=== PATIENT | female | born 1990 | race Caucasian/White ===

== ENCOUNTER 2024-03-29 20:08 | Emergency (ER) | payer BC, SELFPAY ==
[2024-03-29 20:17] VITALS: BP 138/80; PULSE 98; RESP 22; TEMP 36.7; O2SAT 100; BMI 38.0
[2024-03-29 20:20] VITALS: PULSE 91; O2SAT 100
--- NOTE | 2024-03-29 20:20 | HMH.EDGENADL ---
Discharge Plan Disposition Patient Disposition: Home, Self-Care Condition: Good Referrals Follow up/Referrals: Aleisha Gill DO [Staff Physician] - See instructions Eboni Dan APRN [Primary Care Provider] - See instructions Activity Restrictions/Add. Instructions Additional Instructions/Restrictions: Please follow-up with your CRIMINAL PSYCHOLOGIST in 48 hours for reevaluation. Return to the ER for any increasing pain fever intractable nausea vomiting inability to tolerate oral intake or heavy bleeding. Clinical Impressions Clinical Impression: Abdominal pain, acute Instructions Patient Instructions: DI for Acute Abdominal Pain Print Language Print Language: Martiniquais Discharge ED Provider: Hernandez Downs General Adult HPI <EUN Samuels - Last Filed: 03/29/24 22:22> General Chief complaint: PAIN Stated complaint: abd pain, blood in urine Time Seen by Provider: 03/29/24 20:19 History of Present Illness HPI narrative: Patient presents for evaluation of lower abdominal pain. Patient presents for increasing lower abdominal pain that began today. Additionally patient is on her period but has had a BTL. Patient reports that she is using a regular size tampon and going through approximately 1 an hour which is not excessive. She denies any fever chills hemoptysis hematochezia melena but does endorse some nausea no vomiting and but has loose stools. More significantly, patient was diagnosed with a PE last week and started on Xarelto. Related Data Allergies Allergy/AdvReac Type Severity Reaction Status Date / Time Penicillins Allergy Hives Verified 03/29/24 20:27 PFSH <EUN Samuels - Last Filed: 03/29/24 22:22> PFS Disclaimer: The information contained in this section may have been updated after the patient was seen, as this information can be updated by other users. Surgical History (Updated 03/29/24 @ 21:15 by Sheryl Vega RN) Surgical history of tubal ligation Social History (Updated 03/29/24 @ 22:22 by EUN Samuels) Smoking Status: Former smoker alcohol intake: never current occupational status: unemployed Travel in the last 8 weeks: None <EUN Samuels - Last Filed: 03/29/24 22:22> ROS Obtained: Yes Systems reviewed as appropriate & no additional complaints except as documented Physical Exam <EUN Samuels - Last Filed: 03/29/24 22:22> General General appearance: alert and in distress (Due to pain) Respiratory Respiratory exam: Present normal lung sounds bilaterally Cardiovascular Cardiovascular exam: Present regular rate Neurological Exam Neurological exam: Present alert and oriented X3 Medical Decision Making <EUN Samuels - Last Filed: 03/29/24 22:22> Medical Records Medical records reviewed: Yes I reviewed the patient's medical records. Screening: Per USPSTF and CDC recommendations, given the prevalence of disease in our region, it is our hospital?s policy to screen for HIV and viral Hepatitis for all patients aged 18 and over and those with ongoing risk factors. [place] Inquiry Pt receiving controlled substance: No Vital Signs: 03/29/24 20:17 03/29/24 20:20 03/29/24 20:39 Temperature 98.1 F Temperature Source Oral Pulse Rate 91 H 86 Pulse Rate [Left Radial] 98 H Respiratory Rate 22 Blood Pressure 131/86 Blood Pressure [Right Arm] 138/80 Blood Pressure Mean [Right Arm] 99 Blood Pressure Source Blood Pressure Source [Right Arm] Automatic Cuff Blood Pressure Position 02 Sat by Pulse Oximetry 100 100 100 Oxygen Delivery Method Room Air 03/29/24 22:00 03/29/24 22:19 Temperature 97.9 F Temperature Source Oral Pulse Rate 104 H 74 Pulse Rate [Left Radial] Respiratory Rate 18 Blood Pressure 107/60 L 126/74 Blood Pressure [Right Arm] Blood Pressure Mean [Right Arm] Blood Pressure Source Automatic Cuff Blood Pressure Source [Right Arm] Blood Pressure Position Supine 02 Sat by Pulse Oximetry 98 Oxygen Delivery Method Room Air Lab Data Lab results reviewed: Yes I reviewed the patient's lab results. Lab Results 03/29/24 20:31: WBC 9.6, RBC 4.51, Hgb 12.4, Hct 37.7, MCV 83.7, MCH 27.5, MCHC 32.8, RDW 14.6, Plt Count 281, MPV 8.3, Neut % (Auto) 59.2, Lymph % (Auto) 32.9, Sharp % (Auto) 5.7, Eos % (Auto) 1.0, Baso % (Auto) 1.1, Neut # (Auto) 5.7, Lymph # (Auto) 3.1, Sharp # (Auto) 0.6, Eos # (Auto) 0.1, Baso # (Auto) 0.1, Sodium 140, Potassium 4.2, Chloride 109 H, Carbon Dioxide 19 L, Anion Gap 16.2 H, BUN 13, Creatinine 1.00, Estimated Creat Clear 143, Estimated GFR 64, Est GFR ( Amer) 77, Glucose 96, Lactate 2.4 H, Calcium 8.9, Total Bilirubin 0.6, AST 36, ALT 26, Alkaline Phosphatase 91, Total Protein 7.5, Albumin 4.1, Globulin 3.4 H, Albumin/Globulin Ratio 1.2 03/29/24 22:23: Urine Color Yellow, Urine Appearance Clear, Urine pH 6.5, Ur Specific [place] 1.015, Urine Protein Negative, Urine Glucose (UA) Negative, Urine Ketones Trace, Urine Blood 3+ A, Urine Nitrate Negative, Urine Bilirubin Negative, Urine Urobilinogen 0.2, Ur Leukocyte Esterase Negative 03/29/24 20:31 03/29/24 20:31 Orders (Tests/Meds): ED MEDICATIONS Discontinued Medications Generic Name Dose Route Start Last Admin Trade Name Cherelle PRN Reason Stop Dose Admin Acetaminophen 1,000 mg 03/29/24 20:44 03/29/24 21:08 Acetaminophen 1,000mg/100ml Vial IV 03/29/24 20:45 1,000 mg ONCE ONE Administration Hydromorphone HCl 1 mg 03/29/24 20:44 03/29/24 21:08 Hydromorphone 2mg/Ml Syringe IV 03/29/24 20:45 1 mg ONCE ONE Administration Sodium Chloride 1,000 mls @ 999 mls/hr 03/29/24 20:44 03/29/24 21:08 Sod Chlor 0.9% 1000ml Bag IV 03/29/24 21:44 999 mls/hr .Q1H1M ONE Administration Iopamidol 75 ml 03/29/24 21:20 03/29/24 21:34 Iopamidol-370 (76%);100ml Bottle IV 03/29/24 21:21 75 ml ONCE ONE Administration Iopamidol 75 ml 03/29/24 21:33 03/29/24 21:34 Iopamidol-370 (76%);100ml Bottle IV 03/29/24 21:34 Not Given ONCE ONE Ketorolac Tromethamine 15 mg 03/29/24 21:05 03/29/24 21:08 Ketorolac 30mg/Ml Vial IV 03/29/24 21:06 15 mg ONCE ONE Administration Ondansetron HCl 4 mg 03/29/24 20:44 03/29/24 21:08 Ondansetron 4mg/2ml Vial IV 03/29/24 20:45 4 mg ONCE ONE Administration Sodium Chloride 10 ml 03/29/24 21:20 03/29/24 21:22 Sodium Chloride 0.9% 10ml Syr (Rad Only) IV 03/29/24 21:21 10 ml ONCE ONE Administration Sodium Chloride 10 ml 03/29/24 21:33 Sodium Chloride 0.9% 10ml Syr (Rad Only) IV 04/28/24 21:32 NEEDED PRN Maintain IV Site ORDERS Category Date Time Status CT abdomen pelvis w con Stat Cat Scan 03/29/24 20:44 Completed CBC w/Auto Diff [Complete Blood Count Auto Diff] Stat Lab 03/29/24 20:31 Completed CMP [Comprehensive Metabolic Panel] Stat Lab 03/29/24 20:31 Completed HIV (1&2) Antibody Rapid Stat Lab 03/29/24 20:31 Received Hep C Ab with Reflex to RNA Stat Lab 03/29/24 20:31 Received Lactic Acid Stat Lab 03/29/24 20:31 Completed UA [Urinalysis and Microscopic] Stat Lab 03/29/24 22:23 Results Medical Decision Narrative: In summary patient is a 33-year-old female who presents to the emergency department for evaluation of acute abdominal pain. Patient is hemodynamically stable upon arrival, afebrile. Physical exam is remarkable for exquisitely tender abdominal exam on palpation however her abdomen is soft with no rebound or guarding or rigidity or peritoneal signs. Bowel sounds are normal active.. Differential diagnosis includes acute diverticulitis versus ovarian cyst versus fibroid versus colitis etc. Initial workup will be conducted with hematologic labs CT scan abdomen pelvis. Initial interventions include crystalloid bolus Tylenol Dilaudid. Initial workup reviewed by me and her white count is solidly normal with no shift at all on differential, CMP shows a chloride of 100 CO2 of 10 gap of 16.2 lactate of 2.4 the remainder of her CMP is within normal limits. I have a ordered a urine and diarrhea panel but thus far patient has not voided. My informal interpretation of her CT scan abdomen pelvis reveals no apparent acute abnormality prior to radiology read although the uterus is somewhat engorged and appears to be much larger to my untrained eye.. Upon repeat evaluation patient had complete resolution of her pain. Given this we have essentially ruled out any serious or life-threatening condition and while we do not have a specific answer for her abdominal pain we have ruled out any serious or life-threatening illnesses thus patient is appropriate for discharge with strict return precautions. <Hernandez Downs MD - Last Filed: 03/29/24 22:45> Vital Signs: 03/29/24 20:17 03/29/24 20:20 03/29/24 20:39 Temperature 98.1 F Temperature Source Oral Pulse Rate 91 H 86 Pulse Rate [Left Radial] 98 H Respiratory Rate 22 Blood Pressure 131/86 Blood Pressure [Right Arm] 138/80 Blood Pressure Mean [Right Arm] 99 Blood Pressure Source Blood Pressure Source [Right Arm] Automatic Cuff Blood Pressure Position 02 Sat by Pulse Oximetry 100 100 100 Oxygen Delivery Method Room Air 03/29/24 22:00 03/29/24 22:19 Temperature 97.9 F Temperature Source Oral Pulse Rate 104 H 74 Pulse Rate [Left Radial] Respiratory Rate 18 Blood Pressure 107/60 L 126/74 Blood Pressure [Right Arm] Blood Pressure Mean [Right Arm] Blood Pressure Source Automatic Cuff Blood Pressure Source [Right Arm] Blood Pressure Position Supine 02 Sat by Pulse Oximetry 98 Oxygen Delivery Method Room Air Lab Data Lab Results 03/29/24 20:31: WBC 9.6, RBC 4.51, Hgb 12.4, Hct 37.7, MCV 83.7, MCH 27.5, MCHC 32.8, RDW 14.6, Plt Count 281, MPV 8.3, Neut % (Auto) 59.2, Lymph % (Auto) 32.9, Sharp % (Auto) 5.7, Eos % (Auto) 1.0, Baso % (Auto) 1.1, Neut # (Auto) 5.7, Lymph # (Auto) 3.1, Sharp # (Auto) 0.6, Eos # (Auto) 0.1, Baso # (Auto) 0.1, Sodium 140, Potassium 4.2, Chloride 109 H, Carbon Dioxide 19 L, Anion Gap 16.2 H, BUN 13, Creatinine 1.00, Estimated Creat Clear 143, Estimated GFR 64, Est GFR ( Amer) 77, Glucose 96, Lactate 2.4 H, Calcium 8.9, Total Bilirubin 0.6, AST 36, ALT 26, Alkaline Phosphatase 91, Total Protein 7.5, Albumin 4.1, Globulin 3.4 H, Albumin/Globulin Ratio 1.2 03/29/24 22:23: Urine Color Yellow, Urine Appearance Clear, Urine pH 6.5, Ur Specific [place] 1.015, Urine Protein Negative, Urine Glucose (UA) Negative, Urine Ketones Trace, Urine Blood 3+ A, Urine Nitrate Negative, Urine Bilirubin Negative, Urine Urobilinogen 0.2, Ur Leukocyte Esterase Negative Orders (Tests/Meds): ED MEDICATIONS Discontinued Medications Generic Name Dose Route Start Last Admin Trade Name Freq PRN Reason Stop Dose Admin Acetaminophen 1,000 mg 03/29/24 20:44 03/29/24 21:08 Acetaminophen 1,000mg/100ml Vial IV 03/29/24 20:45 1,000 mg ONCE ONE Administration Hydromorphone HCl 1 mg 03/29/24 20:44 03/29/24 21:08 Hydromorphone 2mg/Ml Syringe IV 03/29/24 20:45 1 mg ONCE ONE Administration Sodium Chloride 1,000 mls @ 999 mls/hr 03/29/24 20:44 03/29/24 21:08 Sod Chlor 0.9% 1000ml Bag IV 03/29/24 21:44 999 mls/hr .Q1H1M ONE Administration Iopamidol 75 ml 03/29/24 21:20 03/29/24 21:34 Iopamidol-370 (76%);100ml Bottle IV 03/29/24 21:21 75 ml ONCE ONE Administration Iopamidol 75 ml 03/29/24 21:33 03/29/24 21:34 Iopamidol-370 (76%);100ml Bottle IV 03/29/24 21:34 Not Given ONCE ONE Ketorolac Tromethamine 15 mg 03/29/24 21:05 03/29/24 21:08 Ketorolac 30mg/Ml Vial IV 03/29/24 21:06 15 mg ONCE ONE Administration Ondansetron HCl 4 mg 03/29/24 20:44 03/29/24 21:08 Ondansetron 4mg/2ml Vial IV 03/29/24 20:45 4 mg ONCE ONE Administration Sodium Chloride 10 ml 03/29/24 21:20 03/29/24 21:22 Sodium Chloride 0.9% 10ml Syr (Rad Only) IV 03/29/24 21:21 10 ml ONCE ONE Administration Sodium Chloride 10 ml 03/29/24 21:33 Sodium Chloride 0.9% 10ml Syr (Rad Only) IV 04/28/24 21:32 NEEDED PRN Maintain IV Site ORDERS Category Date Time Status CT abdomen pelvis w con Stat Cat Scan 03/29/24 20:44 Completed CBC w/Auto Diff [Complete Blood Count Auto Diff] Stat Lab 03/29/24 20:31 Completed CMP [Comprehensive Metabolic Panel] Stat Lab 03/29/24 20:31 Completed HIV (1&2) Antibody Rapid Stat Lab 03/29/24 20: Received Hep C Ab with Reflex to RNA Stat Lab 03/29/24 20:31 Received Lactic Acid Stat Lab 03/29/24 20:31 Completed UA [Urinalysis and Microscopic] Stat Lab 03/29/24 22:23 Results Medical Decision Narrative: In summary patient is a 33-year-old female who presents to the emergency department for evaluation of acute abdominal pain. Patient is hemodynamically stable upon arrival, afebrile. Physical exam is remarkable for exquisitely tender abdominal exam on palpation however her abdomen is soft with no rebound or guarding or rigidity or peritoneal signs. Bowel sounds are normal active.. Differential diagnosis includes acute diverticulitis versus ovarian cyst versus fibroid versus colitis etc. Initial workup will be conducted with hematologic labs CT scan abdomen pelvis. Initial interventions include crystalloid bolus Tylenol Dilaudid. Initial workup reviewed by me and her white count is solidly normal with no shift at all on differential, CMP shows a chloride of 100 CO2 of 10 gap of 16.2 lactate of 2.4 the remainder of her CMP is within normal limits. I have a ordered a urine and diarrhea panel but thus far patient has not voided. My informal interpretation of her CT scan abdomen pelvis reveals no apparent acute abnormality prior to radiology read although the uterus is somewhat engorged and appears to be much larger to my untrained eye.. Upon repeat evaluation patient had complete resolution of her pain. Given this we have essentially ruled out any serious or life-threatening condition and while we do not have a specific answer for her abdominal pain we have ruled out any serious or life-threatening illnesses thus patient is appropriate for discharge with strict return precautions. I independently evaluated and examined patient. I was consulted by the JAIMIE, and we discussed the complexity of the problems being addressed. I approved the treatment and management plan for this patient's care in the Emergency Department, thus performing a substantive portion of the medical decision making. Results of imaging were printed and given to patient and relayed to her and urgency of follow-up was discussed, she voiced her understanding. Because patient at baseline without signs or symptoms of clinical decompensation, deemed appropriate for discharge. Results were relayed to patient who voiced understanding and were agreeable to outpatient management and follow up. I discussed my clinical impression with patient and answered all questions. At this time, the evidence for any other entities in the differential is insufficient to warrant any further testing or ED observation. This was explained as well. Advisory was given that persistent or worsening symptoms require further evaluation. I confirmed the understanding of this discussion. Hernandez Downs MD Critical Care <EUN Samuels - Last Filed: 03/29/24 22:22> Critical Care Time Critical Care Time: No
[2024-03-29 20:39] VITALS: BP 131/86; PULSE 86; O2SAT 100
--- NOTE | 2024-03-29 20:44 | CT_ITS ---
PROCEDURE INFORMATION: Exam: CT Abdomen And Pelvis With Contrast Exam date and time: 03/29/2024 9:20 PM Age: 33 years old Clinical indication: Abdominal pain; Additional info: Acute abdominal pain TECHNIQUE: Imaging protocol: Computed tomography of the abdomen and pelvis with contrast. Radiation optimization: All CT scans at this facility use at least one of these dose optimization techniques: automated exposure control; mA and/or kV adjustment per patient size (includes targeted exams where dose is matched to clinical indication); or iterative reconstruction. Contrast material: ISOVUE; Contrast volume: 75 ml; Contrast route: IV; COMPARISON: No relevant prior studies available. FINDINGS: Lungs: The visualized lung bases demonstrate no focal infiltrates or pleural effusions. Liver: Mild diffuse hepatic steatosis is identified. Gallbladder and biliary ducts: The gallbladder is normal. There is no evidence of biliary ductal dilation. Pancreas: The pancreas is normal. Spleen: The spleen is normal. Adrenal glands: The adrenal glands appear within normal limits. Kidneys and ureters: The kidneys are normal. Stomach and bowel: The stomach appears within normal limits. No wall thickening or inflammatory change. The stomach appears within normal limits. No wall thickening or inflammatory change. Appendix: No evidence of appendicitis. Intraperitoneal space: No free air. No evidence for focal fluid collection or ascites. No evidence for omental thickening. Vasculature: Unremarkable. No abdominal aortic aneurysm. Lymph nodes: Unremarkable. No pathologically enlarged lymph nodes are identified. Urinary bladder: The bladder appears within normal limits. No wall thickening. Reproductive: The uterus and adnexal structures appear normal. Postoperative changes from bilateral tubal ligation noted. Abnormal thickening and heterogeneity to the endocervical canal. It is thickened to about 3.6 cm. Recommend gynecologic consultation to exclude the possibility of cervical carcinoma. There is no evidence for thickening of the endometrial stripe. The region of endocervical thickening extends into the lower uterine segment and extends 7.7 cm in craniocaudal dimension. Bones/joints: Unremarkable. No acute fracture. Soft tissues: Unremarkable. IMPRESSION: Abnormal thickening and heterogeneity to the endocervical canal. It is thickened to about 3.6 cm. Recommend gynecologic consultation to exclude the possibility of cervical carcinoma. There is no evidence for thickening of the endometrial stripe. The region of endocervical thickening extends into the lower uterine segment and extends 7.7 cm in craniocaudal dimension.
--- NOTE | 2024-03-29 20:48 | PC.NURSE ---
Pt to xray via stretcher
[2024-03-29 20:58] LABS: Alanine Aminotransferase 26 U/L (12-78); Albumin Level 4.1 g/dl (3.5-5.0); Albumin/Globulin Ratio 1.2 (1.1-1.8); Alkaline Phosphatase 91 U/L (38-126); Anion Gap 16.2 mEq/L (5-15); Aspartate Amino Transferase 36 U/L (14-36); Bilirubin,Total 0.6 mg/dl (0.2-1.3); Blood Urea Nitrogen 13 mg/dl (7-17); Calcium 8.9 mg/dl (8.4-10.2); Carbon Dioxide 19 mmol/L (22.0-30.0); Chloride 109 mmol/L (98-107); Creatinine Clearance Estimated 143 mL/min (50-200); Estimated Glomerular Filt Rate 64 ml/min (>60); GFR (African American) 77 ML/MIN (>60); Globulin 3.4 g/dL (1.3-3.2); Glucose 96 mg/dl (74-100); Potassium 4.2 mmoL/L (3.5-5.1); Sodium 140 mmol/L (136-145); Total Protein,Serum 7.5 g/dl (6.3-8.2)
[2024-03-29 21:02] LABS: Lactic Acid 2.4 mmol/L (0.7-2.1)
[2024-03-29] MEDS: ONDANSETRON 4MG/2ML VIAL 4 MG IV (21:08)
[2024-03-29] MEDS: KETOROLAC 30MG/ML VIAL 15 MG IV (21:08)
[2024-03-29] MEDS: ACETAMINOPHEN 1,000MG/100ML VIAL 1000 MG IV (21:08)
[2024-03-29] MEDS: 0.9 % SODIUM CHLORIDE 1000ML 1,000 ML 999 ML IV (21:08)
[2024-03-29] MEDS: HYDROMORPHONE 2MG/ML SYRINGE 1 MG IV (21:08)
--- NOTE | 2024-03-29 21:19 | PC.NURSE ---
Patient refuses to keep blood pressure cuff and O2 sensor on. Educated on risks of not being monitored appropriately, up to and including or worsening condition.
[2024-03-29] MEDS: SODIUM CHLORIDE 0.9% 10ML SYR (RAD ONLY) 10 ML IV (21:22)
[2024-03-29] MEDS: IOPAMIDOL-370 (76%);100ML BOTTLE 75 ML IV (21:34)
[2024-03-29 21:38] LABS: Basophils # 0.1 K/mm3 (0-0.2); Basophils % 1.1 % (0.1-2.0); Eosinophils # 0.1 K/mm3 (0.0-0.4); Hematocrit 37.7 % (37.0-47.0); Hemoglobin 12.4 g/dL (12.2-16.2); Lymphocytes # 3.1 K/mm3 (0.7-4.5); Lymphocytes % 32.9 % (10-50); Mean Corpuscular HGB Conc 32.8 g/dL (31.8-35.4); Mean Corpuscular Hemoglobin 27.5 pg (27.0-31.2); Mean Corpuscular Volume 83.7 fl (81-99); Mean Platelet Volume 8.3 fl (7.4-10.4); Monocytes # 0.6 K/mm3 (0.1-1.0); Monocytes % 5.7 % (1.7-9.3); Neutrophils # 5.7 K/mm3 (1.8-7.8); Neutrophils % 59.2 % (37.0-80.0); Platelet Count 281 K/mm3 (142-424); Red Blood Count 4.51 M/mm3 (4.20-5.40); Red Cell Distribution Width 14.6 % (11.5-17.5); White Blood Count 9.6 K/mm3 (4.8-10.8)
[2024-03-29 22:00] VITALS: BP 107/60; PULSE 104; O2SAT 98
[2024-03-29 22:19] VITALS: BP 126/74; PULSE 74; RESP 18; TEMP 36.6; O2SAT 98
[2024-03-29 22:34] LABS: Appearance,Urine CLEAR (Clear); Blood, Urine 3+ (Negative); Color,Urine YELLOW (Yellow); Glucose,Urine (UA) Negative (Negative); Ketones,Urine TRACE (Negative); Leukocyte Esterase,Urine Negative (Negative); Nitrate,Urine Negative (Negative); PH,Urine 6.5 (5.0-8.5); Protein,Urine Negative (Negative); Specific Gravity, Urine 1.015 (1.005-1.030); Urobilinogen,Urine 0.2 EU/dl (0.2)
[2024-03-29 22:35] LABS: Microscopic, Urine URINE MICROSCOPIC (MICROSCOPIC)
[2024-03-29 22:37] LABS: Bilirubin,Urine Negative (Negative)
[2024-03-29 22:48] LABS: Bacteria,Urine Trace /lpf; RBC,Urine 20-50 #/hpf (0-3)
[2024-03-29 22:49] LABS: Calcium Oxalate Crystals,Urine Trace /lpf; Mucus,Urine 1+ /lpf
[2024-03-30 00:49] LABS: Reflex Lactic Add Lactic Reflex
[2024-03-30 01:55] LABS: HIV (1&2) Antibody Rapid NONREACTIVE (NONREACTIVE)
[2024-03-31 10:49] LABS: HCV Ab Non Reactive (Non Reactive)
--- OUTSIDE RECORDS SUMMARY | 2024-03-31 15:10 | XMS_ITS | Encounter Summary ---
Author Organization [facility] Address [address] [place] [address] Care Team Providers Care Town Marshal Name Role Phone Eboni Dan APRN Primary Care Provider Encounter Details Date Type Department Care Team (Late st Contact Info) Description 11/07/2023 Telephone [facility] [address] [place] [address] Eboni Dan APRN [address] [place] [address] Social History Tobacco Use Types Packs/Day Years Used Date Smoking Tobacco: Never Smokeless Tobacco: Current Alcohol Use Standard Drinks/Week Comments Yes 0 (1 standard drink = 0.6 oz pur e alcohol) Rare PHQ-2 Answer Date Recorded Retired PHQ-9: Brief Depression Severity Measure Score 17 04/12/2023 PHQ-2 Answer Date Recorded Retired PHQ-9: Brief Depression Severity Measure Score 17 04/12/2023 Comments No Sex and Gender Information Value Date Recorded Sex Assigned at Not on file Legal Sex Female 10:27 AM EDT Gender Identity Not on file Sexual Orientation Not on file documented as of this encounter Miscellaneous Notes * Telephone Encounter - Eboni Dan APRN - 11/08/2023 8:22 AM EDT I have sent in prednisone to aid in symptoms. * Telephone Encounter - Solitario العلي RegSched Rep - 11/07/2023 8:02 AM EDT Caller: Venus Dumont Relationship: Self Best call back number: [phone] What medication are you requesting: What are your current symptoms: HAS POISON BRENDAN REAL BAD, NECK HAND FEET BELLY How long have you been experiencing symptoms: 4 DAYS, OTC NOT HELP Have you had these symptoms before: [x] Yes [] No Have you been treated for these symptoms before: [x] Yes [] No If a prescription is needed, what is your preferred pharmacy and phone number: [facility] - [place], [place] - [address] [facility] - [phone] - [phone] PLEASE CALL VENUS documented in this encounter Plan of Treatment Upcoming Encounters Date Type Department Care Team (Late st Contact Info) Description 06/14/2024 12:00 PM EST Office Visit [facility] [address] [place] [address] Eboni Dan APRN [address] [place] [address] documented as of this encounter Visit Diagnoses Diagnosis Poison brendan- Primary 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
--- OUTSIDE RECORDS SUMMARY | 2024-03-31 15:10 | XMS_ITS | Encounter Summary ---
Author Organization [facility] Address [address] [place] [address] Care Team Providers Care Marine Engineering Teacher Name Role Phone Eboni Dan APRN Primary Care Provider Encounter Details Date Type Department Care Team (Late st Contact Info) Description 02/22/2024 Telephone [facility] [address] [place] [address] Eboni Dan APRN [address] [place] [address] Social History Tobacco Use Types Packs/Day Years Used Date Smoking Tobacco: Never Smokeless Tobacco: Current Alcohol Use Standard Drinks/Week Comments Yes 0 (1 standard drink = 0.6 oz pur e alcohol) Rare PHQ-2 Answer Date Recorded Retired PHQ-9: Brief Depression Severity Measure Score 17 04/12/2023 PHQ-2 Answer Date Recorded Retired PHQ-9: Brief Depression Severity Measure Score 0 02/21/2024 Comments No Sex and Gender Information Value Date Recorded Sex Assigned at Not on file Legal Sex Female 10:27 AM EDT Gender Identity Not on file Sexual Orientation Not on file documented as of this encounter Miscellaneous Notes * Telephone Encounter - Eboni Dan APRN - 02/22/2024 9:45 PM EDT Medication has been sent to pharmacy * Telephone Encounter - Kendy Arana RegSched Rep - 02/22/2024 8:19 AM EDT Caller: Venus Dumont Relationship to patient: Self Best call back number: [phone] Patient is needing: WELLBUTRIN. PATIENT WAS TOLD SHE WOULD RECEIVE A PRESCRIPTION FOR THIS MEDICATION. PLEASE ADVISE. [facility] - [place] [id number] [facility] [phone] [facility] [phone] FX documented in this encounter Plan of Treatment Upcoming Encounters Date Type Department Care Team (Late st Contact Info) Description 06/14/2024 12:00 PM EST Office Visit [facility] [address] [place] [address] Eboni Dan APRN [address] [place] [address] documented as of this encounter Visit Diagnoses Not on filedocumented in this encounter Care Teams Marine Engineering Teacher Relationship Specialty Start Date End Date Eboni Dan APRN PCP - General Nurse Practitioner 01/02/23 documented as of this encounter
--- OUTSIDE RECORDS SUMMARY | 2024-03-31 15:10 | XMS_ITS | Encounter Summary ---
Author Organization [facility] Address [address] [place] [address] Care Team Providers Care Director Multimedia Name Role Phone NiEboni Eri CHAVEZ Primary Care Provider Reason for Referral * Diagnostic Imaging (Routine) - Authorized Specialty Diagnoses / Procedures Referred By Contemma t Referred To Contact Radiology Diagnoses Acute lower respiratory tract infection Dyspnea on exertion Acute cough Procedures XR Chest PA & Lateral Félix Renee PA-C [address] [place] [address] Phone: tel: fax: Referral ID Status Reason Start Date Expiration Date V isits Requested Visits Authorized [id number] Authorized 03/14/2024 03/14/2025 1 1 Reason for Visit * Reason Comments Shortness of Breath X 2d. Encounter Details Date Type Department Care Team (Late Contact Info) Description 03/14/2024 12:00 PM EDT Office Visit [facility] [address] [place] [id number] Félix Renee PA-C [address] [place] [address] Dyspnea on exertion (Primary Dx) Social History Tobacco Use Types Packs/Day Years [...] on file documented as of this encounter Last Filed Vital Signs Vital Sign Reading Time Taken Comments Blood Pressure 108/78 03/14/2024 11:55 AM EDT Pulse 98 03/14/2024 11:55 AM EDT Temperature 36.4 ??C (97.6 ??F) 03/14/2024 11:55 AM E DT Respiratory Rate 18 03/14/2024 11:55 AM EDT Oxygen Saturation 100% 03/14/2024 11:55 AM EDT Inhaled Oxygen Concentration - - Weight 113 kg (250 lb) 03/14/2024 11:55 AM EDT Height 172.7 cm (5' 8 ) 03/14/2024 11:55 AM EDT Body Mass Index 38.01 03/14/2024 11:55 AM EDT documented in this encounter Progress Notes * Félix Renee PA-C - 03/14/2024 12:25 PM EDTAssociated Problem(s): Dyspnea on exertion Obtain chest x-ray. Initiate steroid. Use inhaler as needed for symptomatic relief of shortness of breath. Will wait for results of chest x-ray prior to determining need for antibiotic as there is noindication of infection. Patient should seek further medical care if symptoms worsen, she develops a fever, or if there is a lack of improvement in symptoms. * Félix Renee PA-C - 03/14/2024 12:00 PM EDT Images from the original note were not included. Office Note Name: Venus Eri Tim : 1990 Chief Complaint Shortness of Breath (X 2d. ) Subjective History of Present Illness: Venus Dumont is a 33 y.o. female who presents today with complaints of dyspnea on exertion for the last 2 days. Patient states she had a cold last week for about 2 days with runny nose and cough, but those symptoms resolved. Patient states that shortness of breath is worse when walking, talking, and any sort of movement and that after exertion it takes her a while to catch her breath. Patient denies fever, chills, body aches, pleuritic chest pain, cough, sinus pressure, sinus congestion, headache, ear pain, sore throat, nausea, vomiting, and diarrhea. Patient has not been taking any medication for symptom relief. Past Medical History: History reviewed. No pertinent past medical history. Past Surgical History: Past Surgical History: Procedure Laterality Date SECTION Immunizations: There is no immunization history on file for this patient. Medications: Current Outpatient Medications: buPROPion XL (Wellbutrin XL) 150 MG 24 hr tablet, Take 1 tablet by mouth Daily., Disp: 30 tablet, Rfl: 1 dicyclomine (BENTYL) 20 MG tablet, Take 1 tablet by mouth 3 (Three) Times a Day., Disp: 90 tablet, Rfl: 1 propranolol (INDERAL) 20 MG tablet, Take 1 tablet by mouth 3 (Three) Times a Day., Disp: 90 tablet,Rfl: 1 albuterol sulfate HFA 108 (90 Base) MCG/ACT inhaler, 1-2 puffs q 4-6 hours PRN, Disp: 8 g, Rfl: 0 predniSONE (DELTASONE) 10 MG (48) dose pack, Take as directed on package, Disp: 21 each, Rfl: 0 Allergies: Allergies Allergen Reactions Penicillins Other (See Comments) Pt thinks she's allergic. Family History: Family History Problem Relation Age of Onset Stroke Mother Heart disease Mother Hypertension Father Stroke Father Social History: Social History Socioeconomic History Marital status: Single Tobacco Use Smoking status: Never Smokeless tobacco: Current Vaping Use Vaping status: Never Used Substance and Sexual Activity Alcohol use: Yes Comment: Rare Drug use: Never Sexual activity: Defer Objective Vital Signs BP 108/78 Pulse 98 Temp 97.6 ??F (36.4 ??C) Resp 18 Ht 172.7 cm (68 ) Wt 113 kg (250 lb) SpO2 100% BMI 38.01 kg/m?? Estimated body mass index is 38.01 kg/m?? as calculated from the following: Height as of this encounter: 172.7 cm (68 ). Weight as of this encounter: 113 kg (250 lb). Physical Exam Vitals and nursing note reviewed. Constitutional: General: She is not in acute distress. Appearance: Normal appearance. She is not ill-appearing or toxic-appearing. HENT: Head: Normocephalic and atraumatic. Nose: Rhinorrhea present. No congestion. Mouth/Throat: Pharynx: Posterior oropharyngeal erythema present. No oropharyngeal exudate. Cardiovascular: Rate and Rhythm: Normal rate and regular rhythm. Heart sounds: No murmur heard. No friction rub. No gallop. Pulmonary: Effort: Pulmonary effort is normal. No tachypnea, accessory muscle usage or respiratory distress. Breath sounds: Normal breath sounds. No decreased breath sounds, wheezing, rhonchi or rales. Skin: General: Skin is warm and dry. Neurological: Mental Status: She is alert. Psychiatric: Mood and Affect: Mood normal. Behavior: Behavior normal. Thought Content: Thought content normal. Judgment: Judgment normal. Assessment and Plan Diagnoses and all orders for this visit: 1. Dyspnea on exertion (Primary) Assessment & Plan: Obtain chest x-ray. Initiate steroid. Use inhaler as needed for symptomatic relief of shortness of breath. Will wait for results of chest x-ray prior to determining need for antibiotic as there is noindication of infection. Patient should seek further medical care if symptoms worsen, she develops a fever, or if there is a lack of improvement in symptoms. Orders: - XR Chest PA & Lateral; Future - predniSONE (DELTASONE) 10 MG (48) dose pack; Take as directed on package Dispense: 21 each; Refill: 0 - albuterol sulfate HFA 108 (90 Base) MCG/ACT inhaler; 1-2 puffs q 4-6 hours PRN Dispense: 8 g; Refill: 0 Follow Up Return if symptoms worsen or fail to improve. VAL Hernandez [address] [address] documented in this encounter Plan of Treatment Upcoming Encounters Date Type Department Care Team (Late st Contact Info) Description 06/14/2024 12:00 PM EST Office Visit [facility] [address] [place] [phone] Eboni Dan, KATHY [address] [place] [address] Scheduled Orders Name Type Priority Associated Diagnoses Orde r Schedule XR Chest PA & Lateral Imaging Routine Dyspnea on exertion Expected: 03/15/2024 documented as of this encounter Visit Diagnoses Diagnosis Dyspnea on exertion- Primary Other dyspnea and respiratory abnormality documented in this encounter Care Teams Director Multimedia Relationship Specialty Start Date End Date Eboni Dan, KATHY PCP - General Nurse Practitioner 01/02/23 documented as of this encounter
--- OUTSIDE RECORDS SUMMARY | 2024-03-31 15:10 | XMS_ITS | Clinical Summary ---
Author Organization [facility] Address [address] [place] [address] Care Team Providers Care Flatlock Sewing Machine Operator Name Role Phone NiGeoffreyattila Hwang APRN Primary Care Provider [phone] Allergies Active Allergy Reactions Criticality Noted Date Comments Penicillins Other (See Comments) Low 04/12/2023 Pt thinks she's allergic. Medications dicyclomine (BENTYL) 20 MG tabletIndicatio ns:Irritable bowel syndrome with diarrhea Take 1 tablet by mouth 3 (Three) Times a Day. 90 tablet 1 10/10/2023 Active propranolol (INDERAL) 20 MG tabletIndicatio ns:Mixed anxiety and depressive disorder Take 1 tablet by mouth 3 (Three) Times a Day. 90 tablet 1 02/02/2024 Active buPROPion XL (Wellbutrin XL) 150 MG 24 hr tabletIndicatio ns:Mixed anxiety and depressive disorder Take 1 tablet by mouth Daily. 30 tablet 1 02/22/2024 Active predniSONE (DELTASONE) 10 MG (48) dose packIndications :Dyspnea on exertion Take as directed on package 21 each 03/14/2024 Active albuterol sulfate HFA 108 (90 Base) MCG/ACT inhalerIndicati ons:Dyspnea on exertion 1-2 puffs q 4-6 hours PRN 8 g 03/14/2024 Active Active Problems Problem Noted Date Diagnosed Date Dyspnea on exertion 03/14/2024 Assessment & Plan (03/14/2024 12:27 PM EDT): Obtain chest x-ray. Initiate steroid. Use inhaler as needed for symptomatic relief of shortness of breath. Will wait for results of chest x-ray prior to determining need for antibiotic as there is no indication of infection. Patient should seek further medical care if symptoms worsen, she develops a fever, or if there is a lack of improvement in symptoms. Mixed anxiety and depressive disorder 02/22/2024 Assessment & Plan (02/22/2024 10:33 PM EDT): Patient's depression is a single episode that is mild without psychosis. Depression is active and worsening. Plan: Begin new antidepressant medicine; wellbutrin Medication/s discontinued today; lexapro Followup 6 weeks . Encounters Date Type Department Care Team Description 03/28/2024 Telephone [facility] [address] [place] [address] Eboni Dan APRN FMLA FORM 03/27/2024 Telephone [facility] [address] [place] [address] Eboni Dan APRN CALLBACK 03/22/2024 4:45 PM EST Office Visit [facility] [address] [place] [address] Eboni Dan APRN Acute deep vein thrombosis (DVT) of distal vein of right lower extremity (Primary Dx); Acute saddle pulmonary embolism without acute cor pulmonale 03/22/2024 Travel 03/14/2024 12:00 PM EDT Office Visit [facility] [address] [place] [address] Félix Renee PA-C Dyspnea on exertion (Primary Dx) 03/14/2024 Travel 03/11/2024 Telephone [facility] [address] [place] [address] Eboni Dan APRN Medication Problem 02/22/2024 Documentation [facility] [address] [place] [address] Eboni Dan APRN 02/22/2024 Telephone [facility] [address] [place] [address] Eboni Dan APRN 02/21/2024 12:30 PM EDT Office Visit [facility] [address] [place], [place] [address] Eboni Dan APRN Mixed anxiety and depressive disorder (Primary Dx) 02/01/2024 Refill [facility] [address] [place], [place] [address] Eboni Dan APRN Mixed anxiety and depressive disorder from Last 3 Months Family History Medical History Relation Name Comments Hypertension Father Stroke Father Heart disease Mother Stroke Mother Relation Name Status Comments Father Alive Mother Social History Tobacco Use Types Packs/Day Years [...] on file Sexual Orientation Not on file Last Filed Vital Signs Vital Sign Reading Time Taken Comments Blood Pressure 138/90 03/22/2024 4:50 PM EST Pulse 86 03/22/2024 4:50 PM EST Temperature 36.3 ??C (97.3 ??F) 03/22/2024 4:50 PM ES T Respiratory Rate 16 03/22/2024 4:50 PM EST Oxygen Saturation 100% 03/22/2024 4:50 PM EST Inhaled Oxygen Concentration - - Weight 113 kg (250 lb) 03/22/2024 4:50 PM EST Height 172.7 cm (5' 8 ) 03/22/2024 4:50 PM EST Body Mass Index 38.01 03/22/2024 4:50 PM EST Plan of Treatment Upcoming Encounters Date Type Department Care Team (Late st Contact Info) Description 06/14/2024 12:00 PM EST Office Visit [facility] [address] [place] [address] Eboni Dan, KATHY [address] [place] [address] Health Maintenance Due Date Last Done Comments Annual Gynecologic Pelvic an d Breast Exam 1990 TDAP/TD VACCINES (1 - Tdap) 2009 ANNUAL PHYSICAL 02/26/2017 HEPATITIS C SCREENING 02/26/2017 PAP SMEAR 02/26/2017 BMI FOLLOWUP 04/12/2024 04/12/2023, 04/12/2023 COVID-19 Vaccine ( - 2023-2 5 season) 2024 Postponed from 01/13 (Product Unavailable) INFLUENZA VACCINE 08/12/2024 Postponed from 12/14/2023 (Patient Refused) Pneumococcal Vaccine 0-64 Aged Out No longer eligible based on patient's age to complete this topic Procedures Procedure Name Priority Date/Time Associated Diagnosis Comments SCANNED - LABS 03/21/2024 SCANNED - LABS 03/21/2024 SCANNED - IMAGING 03/21/2024 SCANNED - IMAGING 03/21/2024 SCANNED - IMAGING 03/21/2024 SCANNED - IMAGING 03/20/2024 from Last 3 Months Results * IMAGING SCANNED (03/21/2024) Only the most recent of4 resultswithin the time period is included. Anatomical Region Laterality Modality Radiographic Monica ging Eboni Dan DESIZING MACHINE OPERATOR HEAD END IMG DIAGNOSTIC IMAGING ORDER ALEISHA Final Result * LABS SCANNED (03/21/2024) Only the most recent of2 resultswithin the time period is included. us Eboni Dan APRN LAB BLOOD ORDERABLES Final R esult from Last 3 [place] [address] FORMERLY [facility] MEDICAID Care Teams Flatlock Sewing Machine Operator Relationship Specialty Start Date End Date Eboni Dan, KATHY PCP - General Nurse Practitioner 01/02/23
--- OUTSIDE RECORDS SUMMARY | 2024-03-31 15:10 | XMS_ITS | Encounter Summary ---
Author Organization [facility] Address [address] [place] [address] Care Team Providers Care Hydramatic Mechanic Name Role Phone Eboni Dan APRN Primary Care Provider Encounter Details Date Type Department Care Team (Latest Contact Info) Description 03/14/2024 Travel Social History Tobacco Use Types Packs/Day Years [...] on file documented as of this encounter Plan of Treatment Upcoming Encounters Date Type Department Care Team (Late st Contact Info) Description 06/14/2024 12:00 PM EST Office Visit [facility] [address] [place] [address] Eboni Dan APRN [address] [facility] [place] [address] documented as of this encounter Visit Diagnoses Not on filedocumented in this encounter Care Teams Hydramatic Mechanic Relationship Specialty Start Date End Date Eboni Dan APRN PCP - General Nurse Practitioner 01/02/23 documented as of this encounter
--- OUTSIDE RECORDS SUMMARY | 2024-03-31 15:10 | XMS_ITS | Encounter Summary ---
[facility] Address [address] [place] [address] Care Team Providers Care Paver Layer Name Role Phone Eboni Dan APRN Primary Care Provider Encounter Details Date Type Department Care Team (Late Contact Info) Description 02/22/2024 Documentation [facility] [address] [place] [address] Eboni Dan APRN [address] [place] [address] Social History Tobacco Use Types [...] Encounters Date Type Department Care Team (Late Contact Info) Description 06/14/2024 12:00 PM EST Office Visit [facility] [address] [place] [address] Eboni Dan APRN [address] [place] [address] documented as of this encounter Visit Diagnoses Diagnosis Mixed anxiety and depressive disorder- Primary Dysthymic disorder documented in this encounter Care Teams Paver Layer Relationship Specialty Start Date End Date Eboni Dan APRN PCP - General Nurse Practitioner 01/02/23 documented as of this encounter
--- OUTSIDE RECORDS SUMMARY | 2024-03-31 15:10 | XMS_ITS | Encounter Summary ---
Author Organization [facility] Address [address] [place] [address] Care Team Providers Care Oil Burner Repairer Name Role Phone Eboni Dan APRN Primary Care Provider Reason for Referral * Consultation (Routine) - Authorized Specialty Diagnoses / Procedures Referred By Contemma t Referred To Contact Hematology and Oncology Diagnoses Acute deep vein thrombosis (DVT) of distal vein of right lower extremity Acute saddle pulmonary embolism without acute cor pulmonale Procedures FL OFFICE/OUTPATIENT NEW MODERATE MDM 45 MINUTES Eboni Dan APRN [address] [facility] [place] [address] Phone: tel: fax: Zen Steve MD [address] [address] Phone: tel: fax: Referral ID Status Reason Start Date Expiration Date V isits Requested Visits Authorized [id number] Authorized 03/22/2024 03/22/2025 1 1 Reason for Visit * Reason Comments Shortness of Breath Lower leg swelling. Was given steroids last week. She was admitted at [facility] and was discharged today. She was diagnosed with multiple blood clots in her leg and lungs. Encounter Details Date Type Department Care Team (Late st Contact Info) Description 03/22/2024 4:45 PM EST Office Visit [facility] [address] [place] [address] Eboni Dan, PUBLIC TRANSIT TROLLEY DRIVER [address] [place] [address] Acute deep vein thrombosis (DVT) of distal vein of right lower extremity (Primary Dx); Acute saddle pulmonary embolism without acute cor pulmonale Social History Tobacco Use Types Packs/Day Years [...] Mass Index 38.01 03/22/2024 4:50 PM EST documented in this encounter Progress Notes * Eboni Dan, PUBLIC TRANSIT TROLLEY DRIVER - 03/22/2024 4:45 PM EST Date: 03/22/2024 Patient Name: Venus Dumont : 1990 Chief Complaint: Chief Complaint Patient presents with Shortness of Breath Lower leg swelling. Was given steroids last week. She was admitted at [facility] and was discharged today.She was diagnosed with multiple blood clots in her leg and lungs. History of Present Illness: Venus Dumont is a 33 y.o. female who is here today to follow up for Follow-up from ER at [facility]. Patient was found to have bilateral PEs and right lower extremity DVT. She was discharged with Eliquis 10 mg twice daily for 7 days and then decrease to5 mg twice daily. Patient is very tearful today in clinic as her mother from blood clots. She has never been seen by hematology and this is the first episode of blood clots for patient. She had 2 pregnancies that were uncomplicated. Patient was recently treated for acute upper respiratory infection, she denies being tested for COVID. She has had COVID in the past. Review of Systems: Review of Systems Constitutional: Positive for fatigue. Respiratory: Positive for shortness of breath. Musculoskeletal: Right leg pain and swelling I have reviewed the patients family history, social history, past medical history, past surgical history and have updated it as appropriate. Medications: Current Outpatient Medications: albuterol sulfate HFA 108 (90 Base) MCG/ACT inhaler, 1-2 puffs q 4-6 hours PRN, Disp: 8 g, Rfl: 0 buPROPion XL (Wellbutrin XL) 150 MG 24 hr tablet, Take 1 tablet by mouth Daily., Disp: 30 tablet, Rfl: 1 dicyclomine (BENTYL) 20 MG tablet, Take 1 tablet by mouth 3 (Three) Times a Day., Disp: 90 tablet, Rfl: 1 predniSONE (DELTASONE) 10 MG (48) dose pack, Take as directed on package, Disp: 21 each, Rfl: 0 propranolol (INDERAL) 20 MG tablet, Take 1 tablet by mouth 3 (Three) Times a Day., Disp: 90 tablet,Rfl: 1 Allergies: Allergies Allergen Reactions Penicillins Other (See Comments) Pt thinks she's allergic. PHQ-9 Total Score: Physical Exam: Vital Signs: Vitals: 03/22/24 1650 BP: 138/90 Pulse: 86 Resp: 16 Temp: 97.3 ??F (36.3 ??C) SpO2: 100% Weight: 113 kg (250 lb) Height: 172.7 cm (68 ) Body mass index is 38.01 kg/m??. Physical Exam Vitals and nursing note reviewed. Constitutional: Appearance: Normal appearance. HENT: Head: Normocephalic and atraumatic. Cardiovascular: Rate and Rhythm: Normal rate and regular rhythm. Pulmonary: Effort: Pulmonary effort is normal. Breath sounds: Normal breath sounds. Examination of the right-lower field reveals decreased breath sounds. Examination of the left-lower field reveals decreased breath sounds. Abdominal: General: Bowel sounds are normal. Musculoskeletal: Cervical back: Normal. Thoracic back: Normal. Lumbar back: No tenderness. Normal range of motion. Right lower le+ Edema present. Skin: General: Skin is warm. Neurological: General: No focal deficit present. Mental Status: She is alert and oriented to person, place, and time. Psychiatric: Mood and Affect: Mood normal. Assessment/Plan: Diagnoses and all orders for this visit: 1. Acute deep vein thrombosis (DVT) of distal vein of right lower extremity (Primary) - Ambulatory Referral to Hematology / Oncology 2. Acute saddle pulmonary embolism without acute cor pulmonale - Ambulatory Referral to Hematology / Oncology Urgent referral to hematology Educated on the importance of taking eliquis, Wear compression stockings Avoid massaging to the right leg and protect from right leg getting hit. Monitor for worsening symptoms Go to the ER with worsening shortness of breath, chest pains. *30 minutes spent with patient POC, education and medication management. Follow Up: Return in about 4 weeks (around 04/19/2024). Eboni Dan. KATHY [facility] documented in this encounter Plan of Treatment Upcoming Encounters Date Type Department Care Team (Late st Contact Info) Description 06/14/2024 12:00 PM EST Office Visit [facility] [address] [facility] [place] [address] Eboni Dan APRN [address] [place] [address] documented as of this encounter Visit Diagnoses Diagnosis Acute deep vein thrombosis (DVT) of distal vein of right lower extremity- Primary Acute saddle pulmonary embolism without acute cor pulmonale documented in this encounter Care Teams Oil Burner Repairer Relationship Specialty Start Date End Date Eboni Dan APRN PCP - General Nurse Practitioner 01/02/23 documented as of this encounter
--- OUTSIDE RECORDS SUMMARY | 2024-03-31 15:10 | XMS_ITS | Encounter Summary ---
Author Organization [facility] Address [address] [place] [address] Care Team Providers Care Sand Sifter Name Role Phone Eboni Dan APRN Primary Care Provider Reason for Visit * Reason Comments Med Refill Encounter Details Date Type Department Care Team (Late st Contact Info) Description 02/01/2024 Refill [facility] [address] [place] [address] Eboni Dan APRN [address] [place] [address] Mixed anxiety and depressive disorder Social History Tobacco Use Types Packs/Day Years [...] EST Office Visit [facility] [address] [facility] [place] [address] Eboni Dan APRN [address] [place] [address] documented as of this encounter Visit Diagnoses Diagnosis Mixed anxiety and depressive disorder Dysthymic disorder documented in this encounter Additional Health Concerns Assessment Noted Time PHQ-2 Depression Total Score: 5 04/12/20 23 9:54 AM EST documented as of this encounter Care Teams Sand Sifter Relationship Specialty Start Date End Date Eboni Dan APRN PCP - General Nurse Practitioner 01/02/23 documented as of this encounter
--- OUTSIDE RECORDS SUMMARY | 2024-03-31 15:10 | XMS_ITS | Encounter Summary ---
Author Organization [facility] Address [address] [place] [address] Care Team Providers Care Microwave Radio Technician Name Role Phone Eboni Dan APRN Primary Care Provider Reason for Visit * Reason Comments Depression Stopped taking Lexpr o. She wants something different. Encounter Details Date Type Department Care Team (Late st Contact Info) Description 02/21/2024 12:30 PM EDT Office Visit [facility] [address] [place] [address] Eboni Dan APRN [address] [place] [address] Mixed anxiety and depressive disorder (Primary Dx) Social History Tobacco Use Types [...] Sign Reading Time Taken Comments Blood Pressure 130/82 02/21/2024 12:35 PM EDT Pulse 100 02/21/2024 12:35 PM EDT Temperature 36.6 ??C (97.8 ??F) 02/21/2024 12:35 PM E DT Respiratory Rate 14 02/21/2024 12:35 PM EDT Oxygen Saturation 99% 02/21/2024 12:35 PM EDT Inhaled Oxygen Concentration - - Weight 114 kg (251 lb) 02/21/2024 12:35 PM EDT Height 172.7 cm (5' 8 ) 02/21/2024 12:35 PM EDT Body Mass Index 38.16 02/21/2024 12:35 PM EDT documented in this encounter Progress Notes * Eboni Dan APRN - 02/22/2024 10:33 PM EDTAssociated Problem(s): Mixed anxiety and depressive disorder Patient's depression is a single episode that is mild without psychosis. Depression is active and worsening. Plan: Begin new antidepressant medicine; wellbutrin Medication/s discontinued today; lexapro Followup 6 weeks . * Eboni Dan APRN - 02/21/2024 12:30 PM EDT Date: 02/21/2024 Patient Name: Venus Dumont : 1990 Chief Complaint: Chief Complaint Patient presents with Depression Stopped taking Lexpro. She wants something different. History of Present Illness: Venus Dumont is a 33 y.o. female who is here today to follow up for Weight gain from lexapro. Does not feel like the lexapro is really aiding in her symptoms. She is open to trying something different. She denies any thoughts of harming self or others and no suicidal ideation. She reports increase in stress and anxiety and her daughter who is 8 is really testing her boundaries and it is making it difficulty to get anything done at home, go to school or work. She would like to try wellbutrin DepressionSymptoms include depressed mood and nervousness/anxiety. Her past medical history is significant for depression. Review of Systems: Review of Systems Psychiatric/Behavioral: Positive for depressed mood and stress. The patient is nervous/anxious. I have reviewed the patients family history, social history, past medical history, past surgical history and have updated it as appropriate. Medications: Current Outpatient Medications: buPROPion XL (Wellbutrin [...] Pt thinks she's allergic. PHQ-9 Total Score: 0 Physical Exam: Vital Signs: Vitals: 02/21/24 1235 BP: 130/82 Pulse: 100 Resp: 14 Temp: 97.8 ??F (36.6 ??C) SpO2: 99% Weight: 114 kg (251 lb) Height: 172.7 cm (68 ) Body mass index is 38.16 kg/m??. Physical Exam Vitals and nursing note reviewed. Constitutional: General: She is awake. Appearance: Normal appearance. She is well-developed. HENT: Head: Normocephalic and atraumatic. Eyes: Pupils: Pupils are equal, round, and reactive to light. Cardiovascular: Rate and Rhythm: Normal rate and regular rhythm. Pulmonary: Effort: Pulmonary effort is normal. Breath sounds: Normal breath sounds. Abdominal: General: Bowel sounds are normal. Neurological: General: No focal deficit present. Mental Status: She is alert and oriented to person, place, and time. Psychiatric: Attention and Perception: Attention normal. Mood and Affect: Mood is not anxious or depressed. Affect is not flat. Speech: Speech normal. Behavior: Behavior is cooperative. Thought Content: Thought content normal. Cognition and Memory: Cognition is not impaired. Memory is not impaired. Judgment: Judgment normal. Assessment/Plan: Diagnoses and all orders for this visit: 1. Mixed anxiety and depressive disorder (Primary) Assessment & Plan: Patient's depression is a single episode that is mild without psychosis. Depression is active and worsening. Plan: Begin new antidepressant medicine; wellbutrin Medication/s discontinued today; lexapro Followup 6 weeks . Orders: - buPROPion XL (Wellbutrin XL) 150 MG 24 hr tablet; Take 1 tablet by mouth Daily. Dispense: 30 tablet; Refill: 1 Follow Up: Return in about 6 weeks (around 04/03/2024) for Recheck. Eboni Dan. KATHY [facility] documented in this encounter Plan of Treatment Upcoming Encounters Date Type Department Care Team (Late st Contact Info) Description 06/14/2024 12:00 PM EST Office Visit [facility] [address] [place] [id number] Eboni Dan APRN [address] [place] [address] documented as of this encounter Visit Diagnoses Diagnosis Mixed anxiety and depressive disorder- Primary Dysthymic disorder documented in this encounter Care Teams Microwave Radio Technician Relationship Specialty Start Date End Date Eboni Dan APRN PCP - General Nurse Practitioner 01/02/23 documented as of this encounter
--- OUTSIDE RECORDS SUMMARY | 2024-03-31 15:10 | XMS_ITS | Encounter Summary ---
Author Organization [facility] Address [address] [place] [address] Care Team Providers Care Induction Heat Treater Name Role Phone Eboni Dan APRN Primary Care Provider [phone] Reason for Visit * Reason Onset Date Comments FMLA FORM 03/28/2024 Encounter Details Date Type Department Care Team (Late st Contact Info) Description 03/28/2024 Telephone [facility] [address] [place] [address] Eboni Dan APRN [address] [place] [address] FMLA FORM Social History Tobacco Use Types Packs/Day Years [...] encounter Miscellaneous Notes * Telephone Encounter - Jade Menezes MA - 03/28/2024 2:24 PM EST Patient or her sales account representative dropped off FMLA form today. She did not complete her part so it can't be faxed once completed by provider. Will contact her once ready for cotton picker operator. documented in this encounter Plan of Treatment Upcoming Encounters Date Type Department Care Team (Late st Contact Info) Description 06/14/2024 12:00 PM EST Office Visit [facility] [address] [place] [address] Eboni Dan, KATHY 210 [place] [address] documented as of this encounter Visit Diagnoses Not on filedocumented in this encounter Care Teams Induction Heat Treater Relationship Specialty Start Date End Date Eboni Dan, MANUFACTURING OPERATOR PCP - General Nurse Practitioner 01/02/23 documented as of this encounter
--- OUTSIDE RECORDS SUMMARY | 2024-03-31 15:10 | XMS_ITS | Encounter Summary ---
Author Organization [facility] Address [address] [place] [address] Care Team Providers Care Metal Fabricating Inspector Name Role Phone Eboni Dan APRN Primary Care Provider Reason for Visit * Reason Comments Med Refill Encounter Details Date Type Department Care Team (Late st Contact Info) Description 11/30/2023 Refill [facility] [address] [place] [address] Eboni Dan APRN [address] [place] [address] Mixed anxiety and depressive disorder [...] Description 06/14/2024 12:00 PM EST Office Visit [facility] [address] [facility] [place] [address] Eboni Dan APRN [address] [place] [id number] documented as of this encounter Visit Diagnoses Diagnosis Mixed anxiety and depressive disorder Dysthymic disorder documented in this encounter Additional Health Concerns Assessment Noted Time PHQ-2 Depression Total Score: 5 04/12/20 23 9:54 AM EST documented as of this encounter Care Teams Metal Fabricating Inspector Relationship Specialty Start Date End Date Eboni Dan APRN PCP - General Nurse Practitioner 01/02/23 documented as of this encounter
--- OUTSIDE RECORDS SUMMARY | 2024-03-31 15:10 | XMS_ITS | Encounter Summary ---
Author Organization [facility] Address [address] [address] Care Team Providers Care Marketing Planning Manager Name Role Phone Eboni Dan APRN Primary Care Provider Encounter Details Date Type Department Care Team (Latest Contact Info) Description 03/22/2024 Travel Social History Tobacco Use Types Packs/Day [...] Description 06/14/2024 12:00 PM EST Office Visit [facility] [address] [place] [address] Eboni Dan APRN [address] [facility] [place] [address] documented as of this encounter Visit Diagnoses Not on filedocumented in this encounter Care Teams Marketing Planning Manager Relationship Specialty Start Date End Date Eboni Dan APRN PCP - General Nurse Practitioner 01/02/23 documented as of this encounter
--- OUTSIDE RECORDS SUMMARY | 2024-03-31 15:10 | XMS_ITS | Encounter Summary ---
Author Organization [facility] Address [address] [place] [address] Care Team Providers Care Clinical Programmer Name Role Phone Eboni Dan APRN Primary Care Provider [phone] Reason for Visit * Reason Comments Med Refill Encounter Details Date Type Department Care Team (Late st Contact Info) Description 10/10/2023 Refill [facility] [address] [place] [address] Eboni Dan APRN [address] [place] [address] Irritable bowel syndrome with diarrhea Social History Tobacco Use Types Packs/Day Years [...] Telephone Encounter - Eboni Dan APRN - 10/10/2023 5:10 PM EDT Done documented in this encounter Plan of Treatment Upcoming Encounters Date Type Department Care Team (Late st Contact Info) Description 06/14/2024 12:00 PM EST Office Visit [facility] [address] [place] [address] Eboni Dan, JIRA ADMINISTRATOR [address] [place] [address] documented as of this encounter Visit Diagnoses Diagnosis Irritable bowel syndrome with diarrhea Irritable bowel syndrome documented in this encounter Additional Health Concerns Assessment Noted Time PHQ-2 Depression Total Score: 5 04/12/20 23 9:54 AM EST documented as of this encounter Care Teams Clinical Programmer Relationship Specialty Start Date End Date Eboni Dan, KATHY PCP - General Nurse Practitioner 01/02/23 documented as of this encounter
--- OUTSIDE RECORDS SUMMARY | 2024-03-31 15:10 | XMS_ITS | Encounter Summary ---
Author Organization [facility] Address [address] [place] [address] Care Team Providers Care Packing Line Operator Name Role Phone Eboni Dan APRN Primary Care Provider Reason for Visit * Reason Comments Med Refill Encounter Details Date Type Department Care Team (Late st Contact Info) Description 2023 Refill [facility] [address] [place] [address] Eboni Dan APRN [address] [place] [address] Mixed anxiety and depressive disorder [...] Description 06/14/2024 12:00 PM EST Office Visit [facility] [address] [place] [address] Eboni Dan APRN [address] [place] [id number] documented as of this encounter Visit Diagnoses Diagnosis Mixed anxiety and depressive disorder Dysthymic disorder documented in this encounter Additional Health Concerns Assessment Noted Time PHQ-2 Depression Total Score: 5 04/12/20 23 9:54 AM EST documented as of this encounter Care Teams Packing Line Operator Relationship Specialty Start Date End Date Eboni Dan APRN PCP - General Nurse Practitioner 01/02/23 documented as of this encounter
--- OUTSIDE RECORDS SUMMARY | 2024-03-31 15:10 | XMS_ITS | Encounter Summary ---
Author Organization [facility] Address [address] [place] [id number] Care Team Providers Care Medical Library Assistant Name Role Phone Lit Cespedes APRN Primary Care Provider Reason for Visit * Reason Onset Date Comments Medication Problem 03/11/2024 Encounter Details Date Type Department Care Team (Late st Contact Info) Description 03/11/2024 Telephone [facility] [address] [place] [address] Lit Cespedes APRN [address] [place] [address] Medication Problem Social History Tobacco Use Types Packs/Day Years [...] encounter Miscellaneous Notes * Telephone Encounter - Lit Cespedes APRN - 03/12/2024 11:13 AM EDT Will discuss at appt * Telephone Encounter - Chica Lewis LPN - 03/11/2024 9:25 AM EDT Appt 03/13 * Telephone Encounter - Susannah Nolan RegSched Rep - 03/11/2024 8:55 AM EDT Caller: Venus Dumont Relationship: Self Best call back number: [phone] Which medication are you concerned about: buPROPion XL (Wellbutrin XL) 150 MG 24 hr tablet Who prescribed you this medication: 02/22/2024 When did you start taking this medication: LIT CESPEDES APRN What are your concerns: PATIENT STATED THAT SINCE TAKING THIS MEDICATION SHE IS HAVING A LOT OF PAIN IN HER LEG'S AND RIGHTKNEE. PATIENT WOULD LIKE A CALL BACK TO DISCUSS THIS INFORMATION WITH LIT CESPEDES APRN documented in this encounter Plan of Treatment Upcoming Encounters Date Type Department Care Team (Late st Contact Info) Description 06/14/2024 12:00 PM EST Office Visit [facility] [address] [place] [address] Lit Cespedes APRN [address] [place] [address] documented as of this encounter Visit Diagnoses Not on filedocumented in this encounter Care Teams Medical Library Assistant Relationship Specialty Start Date End Date Lit Cespedes APRN PCP - General Nurse Practitioner 01/02/23 documented as of this encounter
--- OUTSIDE RECORDS SUMMARY | 2024-03-31 15:10 | XMS_ITS | Encounter Summary ---
Author Organization [facility] Address [address] [place] [address] Care Team Providers Care Jig Boring Machine Operator For Metal Name Role Phone Eboni Dan APRN Primary Care Provider Reason for Visit * Reason Onset Date Comments CALLBACK 03/27/2024 Encounter Details Date Type Department Care Team (Late st Contact Info) Description 03/27/2024 Telephone [facility] [address] [place] [address] Eboni Dan APRN [address] [place] [address] CALLBACK Social History Tobacco Use Types Packs/Day Years [...] encounter Miscellaneous Notes * Telephone Encounter - Radha Ceballos MA - 03/27/2024 5:46 PM EST LM for pt, pain in L side of abdomen, chest? When did it start? Rate the pain? 0-10. We needed more information but did leave msg informing pt that if this is concerning or severe pain, [facility] * Telephone Encounter - Rios Zapien RegSched Rep - 03/27/2024 2:57 PM EST Caller: Venus Dumont Relationship: Self Best call back number:[phone] What was the call regarding: PATIENT STATES SHE IS HAVING A CRAMPING TYPE PAIN IN HER LEFT SIDE ANDWOULD LIKE A CALLBACK TO DISCUSS IT AND NEXT STEPS TO TREATING IT. documented in this encounter Plan of Treatment Upcoming Encounters Date Type Department Care Team (Late st Contact Info) Description 06/14/2024 12:00 PM EST Office Visit [facility] [address] [place] [address] Eboni Dan, LETTER STAMPING MACHINE OPERATOR [address] [place], [place] [id number] documented as of this encounter Visit Diagnoses Not on filedocumented in this encounter Care Teams Jig Boring Machine Operator For Metal Relationship Specialty Start Date End Date Eboni Dan, KATHY PCP - General Nurse Practitioner 01/02/23 documented as of this encounter
--- OUTSIDE RECORDS SUMMARY | 2024-03-31 15:11 | XMS_ITS | Encounter Summary ---
Author Organization [facility] Address [address] [place] [address] Care Team Providers Care Hydration Plant Operator Name Role Phone Unavailable Primary Care Provider Unavailabl e Encounter Details Date Type Department Care Team (Latest Contact Info) Description 04/28/2015 3:54 PM EST - 04/28/2015 11:59 PM EST Hospital Encounter [facility] [address] [place], [place] [id number] Janet Elias, SHACKLER Provider, [place] [address] Discharge Disposition: Home or Self Care Social History Tobacco Use Types Packs/Day Years Used Date Smoking Tobacco: Never Assessed Comments Unknown Sex and Gender Information Value Date Recorded Sex Assigned at Not on file Legal Sex Female 10:27 AM EDT Gender Identity Not on file Sexual Orientation Not on file documented as of this encounter Plan of Treatment Upcoming Encounters Date Type Department Care Team (Late st Contact Info) Description 06/14/2024 12:00 PM EST Office Visit [facility] [address] [place] [address] Eboni Dan APRN [address] [place] [address] documented as of this encounter Visit Diagnoses Not on filedocumented in this encounter
--- OUTSIDE RECORDS SUMMARY | 2024-03-31 15:11 | XMS_ITS | Encounter Summary ---
Author Organization [facility] Address [address] [place] [address] Care Team Providers Care Rim Fire Charger Operator Name Role Phone Eboni Dna APRN Primary Care Provider Reason for Referral * Consultation (Routine) - Closed Specialty Diagnoses / Procedures Referred By Zacarias grace Referred To Contact Dermatology Diagnoses Family history of skin cancer Skin lesions, generalized Procedures [place] OFFICE/OUTPATIENT NEW MODERATE MDM 45-59 MINUTES Eboni Dan APRN [address] [place] [address] Phone: tel: fax: Ilan Rome APRN [address] [place] [address] Phone: tel: fax: Referral ID Status Reason Start Date Expiration Date V isits Requested Visits Authorized [id number] Closed Specialty Services Required 04/12/2023 04/11/2024 1 1 Scheduling Instructions [facility] Dermatology Reason for Visit * Reason Comments Establish Care Former pt of Marquis tao Encounter Details Date Type Department Care Team (Late st Contact Info) Description 04/12/2023 9:15 AM EST Office Visit [facility] [address] [place] [address] Eboni Dan APRN [address] [place] [address] Mixed anxiety and depressive disorder (Primary Dx); Family history of skin cancer; Skin lesions, generalized Social History Tobacco Use Types Packs/Day Years Used Date Smoking Tobacco: Never Smokeless Tobacco: Current Tobacco Cessation:Ready to Q uit: Not Asked; Counseling Given: Yes Alcohol Use Standard Drinks/Week Comments Yes 0 [...] Sign Reading Time Taken Comments Blood Pressure 132/94 04/12/2023 9:28 AM EST Pulse 90 04/12/2023 9:28 AM EST Temperature 36.3 ??C (97.4 ??F) 04/12/2023 9:28 AM ES T Respiratory Rate 14 04/12/2023 9:28 AM EST Oxygen Saturation 96% 04/12/2023 9:28 AM EST Inhaled Oxygen Concentration - - Weight 110 kg (242 lb) 04/12/2023 9:28 AM EST Height 172.7 cm (5' 8 ) 04/12/2023 9:28 AM EST Body Mass Index 36.8 04/12/2023 9:28 AM EST documented in this encounter Progress Notes * Eboni Dan, OPTION TRADER - 04/12/2023 9:15 AM EST Date: 04/12/2023 Patient Name: Venus Dumont : 1990 Chief Complaint: Chief Complaint Patient presents with Establish Care Former pt of Roberto. History of Present Illness: Venus Dumont is a 32 y.o. female who is here today to establish care.Pt is a prior patient. She reports she has been dealing with increased anxiety but not taking any medication. She has struggling with anxiety for many years of her life. She has been using coping mechanism, and recently coping mechanisms are without relief of symptoms. She has been on Wellbutrin in the past with minimal relief. She is feeling very irritable. 7 year old Daughter recently diagnosedwith ADHD. She is also having Stomach issues, does not matter if she eats or not eating she has upset stomach, diarrhea all the times, about 2-3 times a day. Gallbladder in place, eating can sometimes aggravate symptoms, but symptoms seem to worsen when anxiety is increased. Denies any thoughts of h arming self or others and no suicidal ideation. PHQ9 and GAD7 completed today. She also reports some skin lesions that have changed and would like to see a dermatology as there is family history of skin cancer. Review of Systems: Review of Systems Constitutional: Positive for fatigue. Negative for activity change, appetite change, unexpected weight gain and unexpected weight loss. Respiratory: Negative for shortness of breath. Cardiovascular: Negative for chest pain. Gastrointestinal: Negative for abdominal pain, diarrhea, nausea and vomiting. Skin: Positive for skin lesions. Neurological: Negative for headache, memory problem and confusion. Psychiatric/Behavioral: Positive for sleep disturbance, depressed mood and stress. Negative for agitation, self-injury and suicidal ideas. The patient is nervous/anxious. Past Medical History: History reviewed. No pertinent past medical history. Past Surgical History: Past Surgical History: Procedure Laterality Date SECTION Family History: Family History Problem Relation Age of Onset Stroke Mother Heart disease Mother Hypertension Father Stroke Father Social History: Social History Socioeconomic History Marital status: Single Tobacco Use Smoking status: Never Smokeless tobacco: Current Vaping Use Vaping Use: Never used Substance and Sexual Activity Alcohol use: Yes Comment: Rare Drug use: Never Sexual activity: Defer Medications: Current Outpatient Medications: escitalopram (Lexapro) 10 MG tablet, Take 1 tablet by mouth Daily., Disp: 30 tablet, Rfl: 1 propranolol (INDERAL) 20 MG tablet, Take 1 tablet by mouth 3 (Three) Times a Day., Disp: 90 tablet,Rfl: 1 Allergies: Allergies Allergen Reactions Penicillins Other (See Comments) Pt thinks she's allergic. PHQ-9 Total Score: 17 Physical Exam: Vital Signs: Vitals: 04/12/23 0928 BP: 132/94 Pulse: 90 Resp: 14 Temp: 97.4 ??F (36.3 ??C) SpO2: 96% Weight: 110 kg (242 lb) Height: 172.7 cm (68 ) Body mass index is 36.8 kg/m??. Class 2 Severe Obesity (BMI >=35 and <=39.9). Obesity-related health conditions include the following: hypertension. Obesity is improving with lifestyle modifications. BMI is is above average; BMI management plan is completed. We discussed portion control and increasing exercise. Physical Exam Vitals and nursing note reviewed. Constitutional: General: She is awake. Appearance: Normal appearance. She is well-developed. HENT: Head: Normocephalic and atraumatic. Eyes: Pupils: Pupils are equal, round, and reactive to light. Cardiovascular: Rate and Rhythm: Normal rate and regular rhythm. Pulmonary: Effort: Pulmonary effort is normal. Breath sounds: Normal breath sounds. Abdominal: General: Bowel sounds are normal. Skin: Findings: Lesion (under left breast) present. Neurological: General: No focal deficit present. Mental Status: She is alert and oriented to person, place, and time. Psychiatric: Attention and Perception: Attention normal. Mood and Affect: Mood is not anxious or depressed. Affect is not flat. Speech: Speech normal. Behavior: Behavior is cooperative. Thought Content: Thought content normal. Cognition and Memory: Cognition is not impaired. Memory is not impaired. Judgment: Judgment normal. Procedures Assessment/Plan: Diagnoses and all orders for this visit: 1. Mixed anxiety and depressive disorder (Primary) - escitalopram (Lexapro) 10 MG tablet; Take 1 tablet by mouth Daily. Dispense: 30 tablet; Refill: 1 - propranolol (INDERAL) 20 MG tablet; Take 1 tablet by mouth 3 (Three) Times a Day. Dispense: 90 tablet; Refill: 1 2. Family history of skin cancer - Ambulatory Referral to Dermatology 3. Skin lesions, generalized - Ambulatory Referral to Dermatology Anxiety and Depression Take medications as prescribed Notify if symptoms are worsening Develop coping mechanisms Best outcome of improving anx/dep is in conjunction with therapy/counseling; this was discussed in clinic today and suggested to the patient. Sending referral to dermatology Monitor for changing of lesions. Follow Up: Return in about 6 weeks (around 05/24/2023) for Recheck. I spent 45 total minutes, [id number], caring for Venus today. Greater than 50% of this time involved counseling and/or coordination of care as documented within this note. Eboni Dan. KATHY [facility] documented in this encounter Plan of Treatment Upcoming Encounters Date Type Department Care Team (Late st Contact Info) Description 06/14/2024 12:00 PM EST Office Visit [facility] [address] [facility] [place] [id number] Eboni Dan APRN [address] [place] [address] documented as of this encounter Visit Diagnoses Diagnosis Mixed anxiety and depressive disorder- Primary Dysthymic disorder Family history of skin cancer Family history of other specified malignant neoplasm Skin lesions, generalized documented in this encounter Additional Health Concerns Assessment Noted Time PHQ-2 Depression Total Score: 5 04/12/20 23 9:54 AM EST documented as of this encounter Care Teams Rim Fire Charger Operator Relationship Specialty Start Date End Date Eboni Dan APRN PCP - General Nurse Practitioner 01/02/23 documented as of this encounter
--- OUTSIDE RECORDS SUMMARY | 2024-03-31 15:11 | XMS_ITS | Encounter Summary ---
Author Organization [facility] Address [address] [place] [address] Care Team Providers Care Malt Liquors Sales Representative Name Role Phone Provider, No Known Primary Care Provider Unavail able Reason for Visit * Reason Comments Dental Pain Encounter Details Date Type Department Care Team (Late st Contact Info) Description 02/26/2017 11:45 AM EDT Office Visit [facility] [address] [facility] [place] [address] Dental abscess (Primary Dx) Social History Tobacco Use Types Packs/Day Years Used Date Smoking Tobacco: Never Comments No Sex and Gender Information Value Date Recorded Sex Assigned at Not on file Legal Sex Female 10:27 AM EDT Gender Identity Not on file Sexual Orientation Not on file documented as of this encounter Last Filed Vital Signs Vital Sign Reading Time Taken Comments Blood Pressure - - Pulse 80 02/26/2017 11:45 AM EDT Temperature 36.7 ??C (98 ??F) 02/26/2017 11:45 AM EDT Respiratory Rate 15 02/26/2017 11:45 AM EDT Oxygen Saturation 99% 02/26/2017 11:45 AM EDT Inhaled Oxygen Concentration - - Weight 92.5 kg (204 lb) 02/26/2017 11:45 AM EDT Height 172.7 cm (5' 8 ) 02/26/2017 11:45 AM EDT Body Mass Index 31.02 02/26/2017 11:45 AM EDT documented in this encounter Patient Instructions * Patient Instructions* Hanane Mckinley APRN - 02/26/2017 11:56 AM EDT Images from the original note were not included. Dental Abscess A dental abscess is a collection of pus in or around a tooth. CAUSES This condition is caused by a bacterial infection around the root of the tooth that involves the inner part of the tooth (pulp). It may result from: ?? Severe tooth decay. ?? Trauma to the tooth that allows bacteria to enter into the pulp, such as a broken or chipped tooth. ?? Severe gum disease around a tooth. SYMPTOMS Symptoms of this condition include: ?? Severe pain in and around the infected tooth. ?? Swelling and redness around the infected tooth, in the mouth, or in the face. ?? Tenderness. ?? Pus drainage. ?? Bad breath. ?? Bitter taste in the mouth. ?? Difficulty swallowing. ?? Difficulty opening the mouth. ?? Nausea. ?? Vomiting. ?? Chills. ?? Swollen neck glands. ?? Fever. DIAGNOSIS This condition is diagnosed with examination of the infected tooth. During the exam, your dentist may tap on the infected tooth. Your dentist will also ask about your medical and dental history and may order X-rays. TREATMENT This condition is treated by eliminating the infection. This may be done with: ?? Antibiotic medicine. ?? A root canal. This may be performed to save the tooth. ?? Pulling (extracting) the tooth. This may also involve draining the abscess. This is done if the tooth cannot be saved. HOME CARE INSTRUCTIONS ?? Take medicines only as directed by your dentist. ?? If you were prescribed antibiotic medicine, finish all of it even if you start to feel better. ?? Rinse your mouth (gargle) often with salt water to relieve pain or swelling. ?? Do not drive or operate heavy machinery while taking pain medicine. ?? Do not apply heat to the outside of your mouth. ?? Keep all follow-up visits as directed by your dentist. This is important. SEEK MEDICAL CARE IF: ?? Your pain is worse and is not helped by medicine. SEEK IMMEDIATE MEDICAL CARE IF: ?? You have a fever or chills. ?? Your symptoms suddenly get worse. ?? You have a very bad headache. ?? You have problems breathing or swallowing. ?? You have trouble opening your mouth. ?? You have swelling in your neck or around your eye. This information is not intended to replace advice given to you by your health care provider. Make sure you discuss any questions you have with your health care provider. Document Released: 05/01/2006 Document Revised: 09/15/2015 Document Reviewed: 04/28/2015 [employer] Patient Education ??2017 [employer]. documented in this encounter Progress Notes * Hanane Mckinley APRN - 02/26/2017 11:45 AM EDT Images from the original note were not included. Subjective Venus Dumont is a 26 y.o. female. Pulse 80 Temp 98 ??F (36.7 ??C) (Temporal Artery ) Resp 15 Ht 68 (172.7 cm) Wt 204 lb (92.5 kg) LMP 02/24/2017 SpO2 99% BMI 31.02 kg/m2 History of Present Illness Pt present to clinic with tooth pain in upper left back jose. States it partially fell out around6 weeks ago and prior to that it likely had a cavity in it. States she has made an appointment for this coming week, but the pain is sever and felt she could not wait until then. The following portions of the patient's history were reviewed and updated as appropriate: allergies, current medications, past family history, past medical history, past social history, past surgicalhistory and problem list. Review of Systems Constitutional: Negative for activity change, appetite change, fatigue and fever. HENT: Negative for congestion, postnasal drip and sore throat. Objective Physical Exam HENT: Mouth/Throat: Assessment/Plan Venus was seen today for dental pain. Diagnoses and all orders for this visit: Dental abscess Other orders - amoxicillin (AMOXIL) 500 MG capsule; Take 1 capsule by mouth 2 (Two) Times a Day for 7 days. documented in this encounter Plan of Treatment Upcoming Encounters Date Type Department Care Team (Late st Contact Info) Description 06/14/2024 12:00 PM EST Office Visit [facility] [address] [facility] [place] [address] Eboni Dan, MOTOR COACH TOUR OPERATOR [address] [place] [address] documented as of this encounter Visit Diagnoses Diagnosis Dental abscess- Primary Periapical abscess without sinus documented in this encounter Care Teams Malt Liquors Sales Representative Relationship Specialty Start Date End Date Provider, [place] [address] PCP - General 07/04/15 01/01/23 documented as of this encounter
--- OUTSIDE RECORDS SUMMARY | 2024-03-31 15:11 | XMS_ITS | Encounter Summary ---
Author Organization [facility] Address [address] [place] [address] Care Team Providers Care Corridor Redevelopment Manager Name Role Phone Eboni Dan APRN Primary Care Provider Encounter Details Date Type Department Care Team (Late st Contact Info) Description 06/20/2023 Refill [facility] [address] [place] [address] Eboni Dan APRN [address] [place] [address] Mixed anxiety and depressive disorder [...] encounter Miscellaneous Notes * Telephone Encounter - Mckenzie Delatorre RegSched Rep - 06/20/2023 2:52 PM EST Caller: Venus Dumont Relationship: Self Best call back number: [phone] Requested Prescriptions: Requested Prescriptions Pending Prescriptions Disp Refills escitalopram (LEXAPRO) 10 MG tablet 30 tablet 1 Sig: Take 1 tablet by mouth Daily. Pharmacy where request should be sent: [address] [phone] [facility] [phone] FX Last office visit with prescribing clinician: 04/12/2023 Last telemedicine visit with prescribing clinician: Visit date not found Next office visit with prescribing clinician: Visit date not found Additional details provided by patient: HAS A FEW DAYS LEFT Does the patient have less than a 3 day supply: [x] Yes [] No Would you like a call back once the refill request has been completed: [x] Yes [] No If the office needs to give you a call back, can they leave a voicemail: [x] Yes [] No Teresa Zapien 06/20/23 14:52 EST documented in this encounter Plan of Treatment Upcoming Encounters Date Type Department Care Team (Late st Contact Info) Description 06/14/2024 12:00 PM EST Office Visit [facility] [address] [place] [address] Eboni Dan APRN [address] [place] [address] documented as of this encounter Visit Diagnoses Diagnosis Mixed anxiety and depressive disorder Dysthymic disorder documented in this encounter Additional Health Concerns Assessment Noted Time PHQ-2 Depression Total Score: 5 04/12/20 23 9:54 AM EST documented as of this encounter Care Teams Corridor Redevelopment Manager Relationship Specialty Start Date End Date Eboni Dan APRN PCP - General Nurse Practitioner 01/02/23 documented as of this encounter
--- OUTSIDE RECORDS SUMMARY | 2024-03-31 15:11 | XMS_ITS | Encounter Summary ---
Author Organization [facility] Address [address] [place] [address] Care Team Providers Care Cake Former Name Role Phone Unavailable Primary Care Provider Unavailabl e Encounter Details Date Type Department Care Team (Late st Contact Info) Description 12/11/2014 3:17 PM EDT - 12/11/2014 11:59 PM EDT Hospital Encounter [facility] DEPARTMENT [address] [phone] Sergey Chery MD [address] [facility] [address] [place] [address] Provider, [place] [address] Discharge Disposition: Home or Self Care Social [...] Description 06/14/2024 12:00 PM EST Office Visit [facility] [address] [place] [address] Eboni Dan, TOOL STRAIGHTENER [address] [place] [address] documented as of this encounter Visit Diagnoses Not on filedocumented in this encounter
--- OUTSIDE RECORDS SUMMARY | 2024-03-31 15:11 | XMS_ITS | Encounter Summary ---
[facility] Organization [facility] Address [address] [place] [address] Care Team Providers Care Wireworker Supervisor Name Role Phone Provider, No Known Primary Care Provider Unavail able Encounter Details Date Type Department Care Team (Late st Contact Info) Description 08/03/2015 5:58 AM EDT - 08/07/2015 2:55 PM EDT Hospital Encounter [facility] [address] [place] [address] Rnai Zapata MD [address] [facility] [address] [place] [address] Discharge Disposition: Home or Self Care Social History Tobacco Use Types Packs/Day Years Used Date Smoking Tobacco: Never Assessed Comments Unknown Sex and Gender Information Value Date Recorded Sex Assigned at Not on file Legal Sex Female 10:27 AM EDT Gender Identity Not on file Sexual Orientation Not on file documented as of this encounter Discharge Summaries * Provider, No Known - 09/10/2015 12:00 AM EDT [facility] [address] [place], [place] [address] DISCHARGE SUMMARY PATIENT NAME: [place] DUMONT ROOM NUMBER: [id number] VISIT NUMBER: [id number] DATE OF : 1990 DATE OF ADMISSION: 08/03/2015 DATE OF DISCHARGE: 08/07/2015 PRIMARY CARE PHYSICIAN: HOSPITAL COURSE: The patient was admitted on 08/03/2015 for induction for postdatism at 40-5/7 weeks. The patient underwent the induction during the day. She had a Lopez bulb that was placed in the evening on 08/03/2015 and then underwent induction on 08/04/2015. Later that evening we did a primary section for failure to progress in labor, delivered a female 7 pounds, 5 ounces with scores of 8 at one minute and 9 at five minutes. Both mother and infant did well during the postoperative course. The patient was advanced to regular diet and full ambulation during the postoperative period. The infant girl did very well. Maternal blood type is A positive. All pre and postdelivery labs have been reviewed. Rani Zapata MD* RWO/prr Voice Rec. ID #[id number] Voice Original ID #[id number] Doc ID #[id number] Rev. #0 cc: Rani Zapata MD* DO NOT TEXT EDIT THIS LINE :CDS:[id number]: Authenticated by RANI ZAPATA M.D. On 09/18/2015 10:54:36 AM documented in this encounter OR Notes * Op Note - Provider, No Known - 08/04/2015 12:00 AM EDT [place] [id number] OPERATIVE REPORT PATIENT NAME: [place] DUMONT ROOM NUMBER: [id number] VISIT NUMBER: [id number] DATE OF : 1990 DATE OF OPERATION: 08/04/2015 ADMITTING PHYSICIAN: BENNY Storey PREOPERATIVE DIAGNOSES: 1. Intrauterine at 40-5/7 weeks. 2. The patient was admitted for induction for postdatism. 3. Failure to progress in labor. PROCEDURE PERFORMED: Primary section through a low transverse uterine incision. SURGEON: Rani Zapata MD FLUIDS: Lactated Ringer's. ANTIBIOTICS: Ancef. INDICATIONS: The patient is a 24-year-old female G1 now P1 who was admitted at 40-4/7 weeks for induction. She underwent Pitocin all day 08/03/2015. She did a Lopez bulb overnight on 08/03/2015 and 08/04/2015. We restarted her Pitocin early in the morning on 08/04/2015. She underwent artificial rupture of membranes. She, at the time of rupture of membranes, was about [address] an intrauterine pressure catheter. She was having very adequate to above adequate contractions, but stayed 5-6 cm for several hours. The baby was only at -2 station. After review of the options, we decided to go ahead and proceed with a primary section for failure to progress in labor. Patient delivered a female infant. scores and weight are pending at this time. DESCRIPTION OF PROCEDURE: The patient was taken to the operating room and placed under epidural anesthesia. She was sterilely draped and prepped. Lopez catheter was placed. A Pfannenstiel incision was made. The subcutaneous was dissected sharply down to the fascia. The fascia was entered at midline and extended laterally. The fascia was from the muscle with blunt and sharp dissection. The peritoneum was entered and extended superiorly and inferiorly. A bladder flap was formed over the lower uterine segment and a low transverse uterine incision was made sharply. The was delivered and bulb suctioned. The pediatric team was there in attendance. Cord was clamped and cut. The placenta was expressed intact. The uterus was free of products of conception. The uterine incision was closed in 1 layer with running #1 chromic. The 1 area had to be reinforced to provide further hemostasis. The posterior cul-de-sac and anterior cul-de-sac were irrigated. The lateral gutters were irrigated. The peritoneal incision was then closed with a running 2-0 Vicryl. The subfascia was irrigated and the fascia was closed in 2 segments with 0 Vicryl. The subcutaneous was irrigated. Good hemostasis was noted and the subcutaneous was closed with a running 3-0 plain. The skin was closed with stainless steel daljit. The patient is doing well in the recovery room at this time. Rani Zapata MD* LAYO/amanda Voice Rec. ID #[id number] Original Voice Rec. ID #[id number] Doc ID #[id number] Revision Count: 0 cc: Rani Zapata MD* DO NOT TEXT EDIT THIS LINE :SALES OFFICER:[id number]: Authenticated by RANI ZAPATA M.D. On 08/10/2015 08:26:45 AM documented in this encounter Plan of Treatment Upcoming Encounters Date Type Department Care Team (Late st Contact Info) Description 06/14/2024 12:00 PM EST Office Visit [facility] [address] [facility] [place] [address] Eboni Dan, GENETICS PHYSICIAN [address] [place] [address] documented as of this encounter Procedures Procedure Name Priority Date/Time Associated Diagnosis Comments PRE-ECLAMPSIA PANEL Routine 08/05/2015 8 :52 AM EDT CBC (NO DIFF) Routine 08/05/2015 5:50 AM EDT CBC (NO DIFF) STAT 08/03/2015 6:35 AM EDT TYPE AND SCREEN STAT 08/03/2015 6:35 AM EDT documented in this encounter Results * (ABNORMAL) Pre-Eclampsia Panel (08/05/2015 8:52 AM EDT) Creatinine 0.5(L) 0.6 - 1.3 mg/dL [facility] Uric Acid 4.1 3.1 - 7.8 mg/dL [facility] Alkaline Phosphatase 101(H) 25 - 100 Units/L [facility] AST (SGOT) 25 0 - 33 Units/L [facility] LDH 259(H) 120 - 246 Units/L [facility] ALT (SGPT) 11 7 - 40 Units/L [facility] Total Bilirubin 0.5 0.3 - 1.2 mg/dL [facility] Blood specimen (specimen) 08/05/2015 8:52 AM EDT 08/05/2015 9:43 AM EDT [facility] - 08/05/2015 11:08 AM EDT Specimen Type : Blood us Rani Zapata MD LAB BLOOD ORDERABLES Final Result Performing Organization Address City/[facility] Co de Phone Number [facility]
[address] [place] [address], * (ABNORMAL) CBC (No diff) (08/05/2015 5:50 AM EDT) WBC 11.10(H) 3.50 - 10.80 K/[facility] RBC 3.42(L) 3.89 - 5.14 M/[facility] Hemoglobin 10.1(L) 11.5 - 15.5 g/dL [facility] Hematocrit 31.4(L) 34.5 - 44.0 % [facility] MCV 91.8 80.0 - 99.0 fL [facility] MCH 29.5 27.0 - 31.0 pg [facility] MCHC 32.2 32.0 - 36.0 g/dL [facility] RDW-CV 14.3 11.3 - 14.5 % [facility] Platelets 195 150 - 450 [facility] Blood specimen (specimen) 08/05/2015 5:50 AM EDT 08/05/2015 6:18 AM EDT [facility] - 08/05/2015 6:42 AM EDT Specimen Type : Blood us Rani Zapata MD LAB BLOOD ORDERABLES Final Result Performing Organization Address City/[facility]/ZIP Co de Phone Number [facility]
[address] [place] [address], * Type and screen (08/03/2015 6:35 AM EDT) ABORH A Rh Positive [facility] Antibody Screen Negative [facility] Blood specimen (specimen) 08/03/2015 6:35 AM EDT 08/03/2015 7:25 AM EDT [facility] - 08/03/2015 8:09 AM EDT Specimen Type : Blood Rani Zapata MD BLOOD BANK TEST ORDERABLES Edited Result - Final Performing Organization Address City/[facility]/ZIP Co de Phone Number [facility]
[address] [place] [address], * CBC (No diff) (08/03/2015 6:35 AM EDT) WBC 9.01 3.50 - 10.80 K/[facility] RBC 3.95 3.89 - 5.14 /[facility] Hemoglobin 12.2 11.5 - 15.5 g/dL [facility] Hematocrit 36.3 34.5 - 44.0 % [facility] MCV 91.9 80.0 - 99.0 fL [facility] MCH 30.9 27.0 - 31.0 pg [facility] MCHC 33.6 32.0 - 36.0 g/dL [facility] RDW-CV 13.9 11.3 - 14.5 % [facility] Platelets 279 150 - 450 K/[facility] Blood specimen (specimen) 08/03/2015 6:35 AM EDT 08/03/2015 7:15 AM EDT [facility] - 08/03/2015 7:18 AM EDT Specimen Type : Blood us Rani Zapata MD LAB BLOOD ORDERABLES Final Result Performing Organization Address City/[facility]/ZIP Co de Phone Number [facility]
[address] [place] [address], documented in this encounter Visit Diagnoses Not on filedocumented in this encounter Care Teams Wireworker Supervisor Relationship Specialty Start Date End Date Provider, No Known [facility] [place] [address] PCP - General 07/04/15 01/01/23 documented as of this encounter
--- OUTSIDE RECORDS SUMMARY | 2024-03-31 15:11 | XMS_ITS | Encounter Summary ---
Author Organization [facility] Address [address] [place] [address] Care Team Providers Care Manager Sales Support Name Role Phone Eboni Dan APRN Primary Care Provider Reason for Visit * Reason Comments Med Refill Encounter Details Date Type Department Care Team (Late st Contact Info) Description 05/16/2023 Refill [facility] MED[facility]INE [address] [place] [address] Eboni Dan APRN [address] [place] [address] Mixed anxiety and depressive disorder [...] Visit [facility] [address] [facility] [place] [address] Eboni Dan APRN [address] [place] [address] documented as of this encounter Visit Diagnoses Diagnosis Mixed anxiety and depressive disorder Dysthymic disorder documented in this encounter Additional Health Concerns Assessment Noted Time PHQ-2 Depression Total Score: 5 04/12/20 23 9:54 AM EST documented as of this encounter Care Teams Manager Sales Support Relationship Specialty Start Date End Date Eboni Dan APRN PCP - General Nurse Practitioner 01/02/23 documented as of this encounter
--- OUTSIDE RECORDS SUMMARY | 2024-03-31 15:11 | XMS_ITS | Encounter Summary ---
Author Organization [facility] Address [address] [place] [address] Care Team Providers Care Airconditioning Drafting Officer Name Role Phone Eboni Dan APRN Primary Care Provider Reason for Visit * Reason Comments Pain foot Encounter Details Date Type Department Care Team (Late st Contact Info) Description 09/27/2023 12:00 PM EDT Office Visit [facility] [address] [place] [address] Eboni Dan APRN [address] [place] [address] Acute right ankle pain (Primary Dx); Right Achilles tendinitis Social History Tobacco Use Types Packs/Day Years [...] Sign Reading Time Taken Comments Blood Pressure 126/78 09/27/2023 12:09 PM EDT Pulse 80 09/27/2023 12:09 PM EDT Temperature 36.6 ??C (97.8 ??F) 09/27/2023 12:09 PM E DT Respiratory Rate 14 09/27/2023 12:09 PM EDT Oxygen Saturation 98% 09/27/2023 12:09 PM EDT Inhaled Oxygen Concentration - - Weight 109 kg (239 lb 12.8 oz) 09/27/2023 12:09 PM EDT Height 172.7 cm (5' 8 ) 09/27/2023 12:09 PM EDT Body Mass Index 36.46 09/27/2023 12:09 PM EDT documented in this encounter Progress Notes * Ni Eboni L, SKIP LOADER - 09/27/2023 12:00 PM EDT Date: 09/27/2023 Patient Name: Venus Dumont : 1990 Chief Complaint: Chief Complaint Patient presents with Pain foot History of Present Illness: Venus Dumont is a 32 y.o. female who is here today for Right ankle pain that has been ongoing for the last couple of months. She works at a [employer] and does a lot of walking on concrete. She is wearing supportive shoes but pain is still present. The pain is originating at the achillis tendon and radiating to the plantar fascia. Walking aggravates symptoms, resting helps to alleviate the pain. Review of Systems: Review of Systems Musculoskeletal: Positive for arthralgias (right ankle). Past Medical History: History reviewed. No pertinent [...] Sexual activity: Defer Medications: Current Outpatient Medications: dicyclomine (BENTYL) 20 MG tablet, Take 1 tablet by mouth 3 (Three) Times a Day., Disp: 90 tablet, Rfl: 1 escitalopram (LEXAPRO) 10 MG tablet, Take 1 tablet by mouth Daily., Disp: 30 tablet, Rfl: 1 propranolol (INDERAL) 20 MG tablet, Take 1 tablet by mouth 3 (Three) Times a Day., Disp: 90 tablet,Rfl: 1 predniSONE (DELTASONE) 10 MG (21) dose pack, Use as directed on package, Disp: 21 tablet, Rfl: 0 Allergies: Allergies Allergen Reactions Penicillins Other (See Comments) Pt thinks she's allergic. Physical Exam: Vital Signs: Vitals: 09/27/23 1209 BP: 126/78 Pulse: 80 Resp: 14 Temp: 97.8 ??F (36.6 ??C) SpO2: 98% Weight: 109 kg (239 lb 12.8 oz) Height: 172.7 cm (68 ) Body mass index is 36.46 kg/m??. Physical Exam Vitals and nursing note reviewed. Constitutional: Appearance: Normal appearance. HENT: Head: Normocephalic and atraumatic. Cardiovascular: Rate and Rhythm: Normal rate and regular rhythm. Pulmonary: Effort: Pulmonary effort is normal. Breath sounds: Normal breath sounds. Abdominal: General: Bowel sounds are normal. Musculoskeletal: Right ankle: Tenderness present. Right Achilles Tendon: Tenderness present. Left ankle: Normal. Left Achilles Tendon: Normal. Skin: General: Skin is warm. Neurological: General: No focal deficit present. Mental Status: She is alert and oriented to person, place, and time. Psychiatric: Mood and Affect: Mood normal. Assessment/Plan: Diagnoses and all orders for this visit: 1. Acute right ankle pain (Primary) - predniSONE (DELTASONE) 10 MG (21) dose pack; Use as directed on package Dispense: 21 tablet; Refill: 0 - XR Ankle 3+ View Right; Future 2. Right Achilles tendinitis - predniSONE (DELTASONE) 10 MG (21) dose pack; Use as directed on package Dispense: 21 tablet; Refill: 0 - XR Ankle 3+ View Right; Future Treating with prednisone for tendonitis, Ice therapy Good supportive shoes If no improvement, will refer to PT Monitor for worsening symptoms. Xray ordered Follow Up: Return if symptoms worsen or fail to improve. Eboni Dan. KATHY [facility] documented in this encounter Plan of Treatment Upcoming Encounters Date Type Department Care Team (Late st Contact Info) Description 06/14/2024 12:00 PM EST Office Visit [facility] [address] [place] [phone] Eboni Dan, SKIP LOADER [address] [facility], [place] [id number] documented as of this encounter Visit Diagnoses Diagnosis Acute right ankle pain- Primary Right Achilles tendinitis documented in this encounter Additional Health Concerns Assessment Noted Time PHQ-2 Depression Total Score: 5 04/12/20 23 9:54 AM EST documented as of this encounter Care Teams Airconditioning Drafting Officer Relationship Specialty Start Date End Date Eboni Dan, KATHY PCP - General Nurse Practitioner 01/02/23 documented as of this encounter
--- OUTSIDE RECORDS SUMMARY | 2024-03-31 15:11 | XMS_ITS | Encounter Summary ---
Author Organization [facility] Address [address] [place] [address] Care Team Providers Care Regional Facilities Manager Name Role Phone Eboni Dan APRN Primary Care Provider Reason for Visit * Reason Comments Med Refill Encounter Details Date Type Department Care Team (Late st Contact Info) Description 08/09/2023 Refill [facility] MEDICINE [address] [place] [address] Eboni Dan APRN [address] [place] [address] Mixed anxiety and depressive disorder [...] Description 06/14/2024 12:00 PM EST Office Visit [facility] MEDICINE [address] [facility] [place] [address] Eboni Dan APRN [address] [place] [address] documented as of this encounter Visit Diagnoses Diagnosis Mixed anxiety and depressive disorder Dysthymic disorder documented in this encounter Additional Health Concerns Assessment Noted Time PHQ-2 Depression Total Score: 5 04/12/20 23 9:54 AM EST documented as of this encounter Care Teams Regional Facilities Manager Relationship Specialty Start Date End Date Eboni Dan APRN PCP - General Nurse Practitioner 01/02/23 documented as of this encounter
== END 2024-03-29 22:26 | disposition home or self-care (01) ==
PROVIDERS: Physician Assistant; Emergency Provider Emergency Medicine; PCP Nurse Practitioner Family
DX: R10.30 Lower abdominal pain, unspecified (principal); R11.0 Nausea; R31.9 Hematuria, unspecified
CPT/HCPCS: 74177; 80053; 81001; 83605; 85025; 86803; 87389; 96361; 96374; 96375; 99285; J0131; J1171; J1885; J2405; J7030; Q9967